=== PATIENT | male | born 2000 | race Caucasian/White ===

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

== ENCOUNTER 2021-01-18 19:18 | Observation (INO) | payer MEDICAID, SELFPAY ==
[2021-01-18 19:24] VITALS: BP 151/73; PULSE 114; RESP 16; TEMP 36.4; O2SAT 94; BMI 25.8
--- NOTE | 2021-01-18 19:47 | W.ED.OVERDOS ---
HPI - Overdose General: Chief Complaint: Overdose Stated Complaint: Overdose/SI Time Seen by Provider: 01/18/21 19:27 History of Present Illness: HPI Narrative: 20-year-old male presents after an overdose. I took a bunch of fentanyl, and an 8 ball of meth, and almost an 8 ball of cocaine, and 3 green Xanax, and I swallowed all of it . When asked why he says I let my depression get to me. My sister and her boyfriend were fighting all day about drugs. He is a bit of a poor historian. He does have a history of psychiatric problems. He states that he came here for help, because his heart was racing and hurting. 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 He denies suicidal or homicidal ideation, plan or intent. He is not depressed. Extensive education was undertaken regarding the severe risk of fentanyl. He understood and indicated he was going to avoid this friend who is giving him fentanyl. Physical Exam Const: EXAM LIMITATIONS: altered mental status and behavioral limitations GENERAL APPEARANCE: cooperative (To some degree) and anxious ORIENTATION/CONSCIOUSNESS: Yes awake, Yes oriented to person, Yes oriented to place and Yes oriented to time OTHER: Fidgeting, obviously intoxicated. HENMT: COMMON NORMALS: normocephalic, atraumatic and Normal external nose present HEAD & SCALP: normocephalic and atraumatic FACE & SINUS: normal facial exam NOSE: Normal external nose present MOUTH: tongue normal THROAT: posterior oropharynx normal Eye: COMMON NORMALS: Equal, round and reactive pupils present and EOMs intact bilaterally PUPIL: Yes Equal, round and reactive pupils present Chest: COMMONS NORMALS: normal inspection of the chest Resp: COMMON NORMALS: normal respiratory effort, No use of accessory muscles and clear to auscultation bilaterally AUSCULTATION: clear to auscultation bilaterally Cardio: COMMON NORMALS: regular rhythm RATE: tachycardic RHYTHM: regular rhythm GI: COMMON NORMALS: Soft to palpation and non-tender PALPATION: Yes Soft to palpation Neuro: SENSORIUM/ORIENTATION: Yes oriented to person, Yes oriented to place and Yes oriented to time Course Consultations: Consultation #1: Juanjo Time: 21:07 Vital Signs: Vital signs: Vital Signs Temperature 97.5 F L 01/18/21 19:24 Pulse Rate 114 H 01/18/21 19:24 Respiratory Rate 16 01/18/21 19:24 Blood Pressure 151/73 01/18/21 19:24 Pulse Oximetry 94 01/18/21 19:24 MDM - Overdose MDM Narrative: Medical decision making narrative: Mr. Mckinley remains medically stable. He is requiring no oxygen. He is awake, alert. He is still fidgety. I question whether there are any opiates on board at all. Clinically, he definitely appears to be intoxicated on methamphetamine. He maintains that he is suicidal and wants to voluntarily be admitted to the NPU. Lab Data: Labs: Lab Results 01/18/21 01/18/21 Range/Units 20:07 20:07 WBC 7.8 (4.5-13.0) 10^3/ uL RBC 5.16 (4.1-5.3) 10^6/u L Hgb 15.2 (11.7-16.6) g/dL Hct 46.6 (42.0-52.0) % MCV 90.3 (80-94) fL MCH 29.5 (28.0-34.0) pg MCHC 32.6 (30.0-36.0) g/dL RDW 13.4 (12.1-15.1) % Plt Count 368 (130-400) 10^3/c mm MPV 9.7 (7.4-10.4) fL Neut % (Auto) 59.3 % Lymph % (Auto) 27.3 % Imperial % (Auto) 10.6 % Eos % (Auto) 1.9 % Baso % (Auto) 0.6 % Neut # (Auto) 4.62 (1.8-8.0) 10^3/u L Lymph # (Auto) 2.1 (1.5-6.5) 10^3/u L Imperial # (Auto) 0.8 (0.2-0.9) 10^3/u L Eos # (Auto) 0.2 (0.0-0.8) 10^3/u L Baso # (Auto) 0.1 (0.0-0.1) 10^3/u L Nucleated RBC % (a uto) 0 % Nucleated RBCs # 0.0 /100WBC Sodium 138 (136-145) mmol/L Potassium 3.9 (3.5-5.1) mmol/L Chloride 99 (98-107) mmol/L Carbon Dioxide 27 (22-29) mmol/L Anion Gap 15.9 (5-19) BUN 14 (6-20) mg/dL Creatinine 0.8 (0.7-1.2) mg/dL GFR Calculation 124.5 (90-130) mL/min Glucose 97 (65-115) mg/dL Calculated Osmolal ity 286 (285-295) mOsm/k g Calcium 9.3 (8.5-10.5) mg/dL Total Bilirubin 0.9 (0.15-1.2) mg/dL AST 78 H (0-40) U/L ALT 136 H (0-41) U/L Alkaline Phosphata se 80 (40-130) IU/L Total Protein 8.3 (6.6-8.7) g/dL Albumin 5.2 (3.5-5.2) g/dL Globulin 3.1 (1.3-4.6) g/dL Salicylates < 0.3 L (3-10) mg/dL Acetaminophen < 5.0 L (10-30) ug/mL Ethyl Alcohol < 10 (0-10) mg/dL Discharge Plan Discharge Prescriptions: No Action Naprosyn 500 mg tablet 500 mg PO BID PRN (Reason: pain) Qty: 20 RF: 0 paroxetine HCl 20 mg Tablet 20 mg PO BEDTIME 30 Days Qty: 30 RF: 1 trazodone 50 mg Tablet 50 mg PO BEDTIME PRN (Reason: Sleep) 30 Days Qty: 30 RF: 1 olanzapine 5 mg Tablet 5 mg PO BEDTIME 30 Days Qty: 30 RF: 1 Coding Level of Care Code ED Aircraft Refueler for Taya Fwd Exam Detailed
[2021-01-18] MEDS: OLANZapine 10 mg ODT 20 MG PO (20:11)
[2021-01-18 20:44] LABS: Basophils # 0.1 10^3/uL (0.0-0.1); Basophils % 0.6 %; Eosinophils # 0.2 10^3/uL (0.0-0.8); Eosinophils % 1.9 %; Hematocrit 46.6 % (42.0-52.0); Hemoglobin 15.2 g/dL (11.7-16.6); Lymphocytes # 2.1 10^3/uL (1.5-6.5); Lymphocytes % 27.3 %; Mean Corpuscular HGB Conc 32.6 g/dL (30.0-36.0); Mean Corpuscular Hemoglobin 29.5 pg (28.0-34.0); Mean Corpuscular Volume 90.3 fL (80-94); Mean Platelet Volume 9.7 fL (7.4-10.4); Monocytes # 0.8 10^3/uL (0.2-0.9); Monocytes % 10.6 %; Neutrophils # 4.62 10^3/uL (1.8-8.0); Neutrophils % 59.3 %; Nucleated Red Blood Cells % 0 %; Platelet Count 368 10^3/cmm (130-400); Red Blood Count 5.16 10^6/uL (4.1-5.3); Red Cell Distribution Width 13.4 % (12.1-15.1); White Blood Count 7.8 10^3/uL (4.5-13.0)
[2021-01-18 21:01] LABS: Alanine Aminotransferase 136 U/L (0-41); Albumin Level 5.2 g/dL (3.5-5.2); Alkaline Phosphatase 80 IU/L (40-130); Aspartate Amino Transferase 78 U/L (0-40); Blood Urea Nitrogen 14 mg/dL (6-20); Calcium 9.3 mg/dL (8.5-10.5); Carbon Dioxide 27 mmol/L (22-29); Chloride 99 mmol/L (98-107); Globulin 3.1 g/dL (1.3-4.6); Glomerular Filtration Rate 124.5 mL/min (90-130); Glucose 97 mg/dL (65-115); Osmolality Calculated 286 mOsm/kg (285-295); Sodium 138 mmol/L (136-145); Total Bilirubin 0.9 mg/dL (0.15-1.2); Total Protein 8.3 g/dL (6.6-8.7)
[2021-01-18 21:02] LABS: Acetaminophen < 5.0 ug/mL (10-30); Alcohol Level < 10 mg/dL (0-10); Anion Gap 15.9 (5-19); Potassium 3.9 mmol/L (3.5-5.1); Salicylate < 0.3 mg/dL (3-10)
[2021-01-18 21:27] VITALS: BP 142/56; PULSE 125; RESP 20; TEMP 36.3; O2SAT 96
[2021-01-18 22:18] LABS: Add Urine Microscopic? NO; Charge for UA Resulting for Rev
[2021-01-18 22:21] LABS: Bilirubin Urine Neg (Negative); Blood Urine Neg (Negative); Glucose Urine UA Norm (Normal); Ketones Urine 1+ (Negative); Leukocyte Esterase Urine Negative (Negative); Nitrate Urine Negative (Negative); Protein Urine Neg (Negative); Specific Gravity, Urine 1.015 (1.005-1.030); Urine Appearance Clear (CLEAR); Urine Color Yellow (Yellow); Urobilinogen Urine Norm (Negative); pH Urine 5 (5-7)
--- NOTE | 2021-01-18 22:44 | PC.NURSE ---
Attempted to call report, RN accepting pt is not ready, asked for approx 10 minutes and will call back.
[2021-01-18 23:02] LABS: Amphetamines Screen Urine Positive (Negative); Barbiturates Screen Urine Negative (Negative); Benzodiazepines Screen Urine Negative (Negative); Cocaine Screen Urine Negative (Negative); Opiate Screen Urine Negative (Negative); PCP Screen Urine Negative (Negative); THC Screen Urine Positive (Negative)
[2021-01-18 23:41] VITALS: BP 146/86; PULSE 122; RESP 18; TEMP 36.7; O2SAT 96
--- NOTE | 2021-01-18 23:46 | PC.NURSE ---
faustino remains present, report given to Rony FELICIANO Pt now transported to GENERAL ACCOUNTING CLERK per w/c
[2021-01-19 00:03] VITALS: BP 127/78; PULSE 115; RESP 20; TEMP 36.9; O2SAT 96
[2021-01-19 00:13] VITALS: BMI 25.8
[2021-01-19] MEDS: trazodone 50 mg Tablet PO (01:18)
[2021-01-19 06:00] VITALS: BP 131/68; PULSE 107; RESP 16; TEMP 36.4; O2SAT 97
[2021-01-19] MEDS: fluoxetine 20 mg Capsule PO (09:08)
[2021-01-19] MEDS: haloperidol 5 mg Tablet PO (09:08)
[2021-01-19] MEDS: gabapentin 300 mg Capsule PO (09:08)
[2021-01-19] MEDS: citalopram 20 mg Tablet PO (09:08)
--- NOTE | 2021-01-19 09:10 | PC.NURSE ---
PRN Haldol Administered Haldol 5mg PO due to patient becoming agitated. Patient is requesting to leave and wanting to speak to the doctor right now. Patient has been pacing up and down the hallway. Nurse will continue to monitor.
--- NOTE | 2021-01-19 10:59 | P.SS_ITS ---
Short Stay Summary Providers Date of Admit/Discharge: 01/21/21 Attending Provider: Robert Geiger MD Primary Care Provider: Keaton Main Chief Complaint: wants stress unit/SI HPI History of Present Illness Vishal Mckinley is a 20 year old male who presented to the emergency department with the following report: Chief Complaint: Overdose Stated Complaint: Overdose/SI Time Seen by Provider: 01/18/21 19:27 History of Present Illness: HPI Narrative: 20-year-old male presents after an overdose. I took a bunch of fentanyl, and an 8 ball of meth, and almost an 8 ball of cocaine, and 3 green Xanax, and I swallowed all of it . When asked why he says I let my depression get to me. My sister and her boyfriend were fighting all day about drugs. He is a bit of a poor historian. He does have a history of psychiatric problems. He states that he came here for help, because his heart was racing and hurting. 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 He is admitted to the neuropsychiatric unit for definitive treatment of those issues. Vishal is known to this teletypewriter operator with his last inpatient stay ending on 08/18/2020. He has struggled with addiction especially methamphetamine for some time and has been resistant at times and ambivalent at others to treatment especially aggressive inpatient treatment. He presents today on a voluntary commitment reporting a desire to get into treatment and that he had reached out to a facility and was interested in the possibility of inpatient at that facility. He reports that he has had some clean time since he last saw this teletypewriter operator however he reports that he has relapsed and he is really struggling again. He was noted to have some tweaking behaviors and reports that his main goal of coming to the inpatient facility here was to avoid continued use and get himself together so he can get to the rehab. We discussed the possibility of him staying in getting more stable but he endorses that he has been taking his medication and doing fine and that he really wants to just get to active treatment. We discussed that he is a voluntary patient and that we would contact the facility and make sure that in fact he does have this circumstance set up however we also agreed that the only way we would feel comfortable with the process was if we deliver him directly from our facility to the rehab which he understood and agreed to proceed as is documented in this note. He denies any substantive changes since he was seen last in excess of his last evaluation is included below for context. He was clear and his desired outcome but was not very interested in answering a lot of questions and even discussed AMA discharge because he reports he gets by to drive home therefore he did not help. Per his 08/13/2020 [facility] [place] inpatient psychiatric valuation: History of Present Illness Vishal Mckinley is a 19 year old male admitted to the psychiatric unit on a 96- hour involuntary commitment after stating staff that he was considering ending h is own life. HPI Narrative: 19-year-old male states he has been having suicidal thoughts today with a plan to kill himself by overdosing. Patient is voluntarily wanting to get help. He states that he has been using drugs lately and used IV methamphetamine today. He denies any worsening or improving factors. Denies previous suicide attempts. On interview today, he states I just told him that because I knew I had to say that to get in here. Patient states he was under a lot of stress and did not know where to go. He was only discharged from this unit 7 days ago. Since then he has been sleeping in a bed at his cousin's apartment. He has been using a methamphetamine on a regular but not daily basis. He literally has nothing else to do. He has been trying to get into a rehabilitation program. He feels that a rehabilitation program will solve many of his psychosocial issues. He believes that if he completes a rehabilitation program, he will either be allowed to return to his mother's home or he will be able to go live with an uncle and get a job with him. Otherwise he has a really no plan of how to manage his life. He engages in no enjoyable activities. He feels hopeless. He feels worthless. He is tearful and sad on a daily basis except when he uses drugs. He says that he tried to commit suicide once by fentanyl overdose but has not tried since then. However he sometimes thinks about suicide. He has no intent or plan at this time. He denies the presence of auditory or visual hallucinations. There is no indication of manic symptoms or history. It is unclear to what degree his substance use may be amplifying his depressive symptoms. They gave me some kind of medication for depression here but it did not help so I stopped taking it. He cannot name or recall the name of the medication. His complete psychiatric history will not be reviewed here given that this is his fifth admission in 6 months, fourth admission in 9 weeks and second admission in 8 days. His history has been thoroughly reviewed and I refer you to those documents. It is unclear that he has ever had a significant trial of medication for depression. There is no record of him participating in outpatient treatment following discharge. He claims to have achieved a GED but given his a level of problem solving skills exhibited during this interview, it should not be assumed that that claim is accurate. There have been multiple recommendations for him to go to rehabilitation programs and he is in generally cooperative with the assessment/plan: This is a 20-year-old white male known to this teletypewriter operator through multiple past encounters who presents to the neuropsychiatric unit with active use and addiction specifically with methamphetamine but with a rehab bed identified on a voluntary commitment with desire for assistance to get to that rehab bed. 1. Continue current medication. 2. Continue every 15 minute checks for safety. 3. Encourage individual, group and milieu therapies. 4. Encourage sober living treatment after discharge at the highest level of care to which he is willing to commit. 5. Patient would benefit from care in the neuropsychiatric unit but ultimately the goal would be to get him to an inpatient bed which is available right now. He voluntary patient was arranged this inpatient bed and so we will support his decision. Home Meds/Allergies Home Medications and Allergies Allergies Allergy/AdvReac Type Severity Reaction Status Date / Time No Known Allergies Allergy Verified 08/12/20 21:43 PFSH Acute PFSH: Medical History (Updated 01/18/21 @ 21:29 by Francisco J Michaud DO) Fentanyl adverse reaction Patient denies any intent to poison himself. He denies suicidal or homicidal ideation, plan or intent. He is not depressed. Extensive education was undertaken regarding the severe risk of fentanyl. He understood and indicated he was going to avoid this friend who is giving him fentanyl. Vitals/I&O/Wt Last Vital Signs Temp 97.6 F 01/19/21 06:00 Pulse 107 H 01/19/21 06:00 Resp 16 01/19/21 06:00 BP 131/68 01/19/21 06:00 Pulse Ox 97 01/19/21 06:00 Weight last 48 hrs Weight 81.647 kg Weight 81.647 kg Hospital Course Admission Diagnoses Major depressive disorder, methamphetamine abuse, cannabis abuse, anxiety and suicidal thoughts. Hospital Course Heidy presented to the emergency department endorsing having taken an overdose as his addiction is once again got out of control and his impulse control has gotten more problematic. He was admitted to the neuropsychiatric unit for definitive treatment of those issues. He was a voluntary patient and when he got to the unit he requested to be assisted to get to a rehab bed he arranged or be discharged so that he could arrange for himself to get there. He denies any desire to or need to change his medications but just a need to get sober and de sire to consider doing that. We confirmed the current availability of the bed and discussed the risk benefits and alternatives of going there now versus staying a few days and then trying to get a bed and he understood. That his desire was to go to that bed now and there were no credible reasons for us to prevent him from this opportunity. He was able to contract for safety prior to discharge. During the hospitalization, patient had routine laboratory studies which were within normal limits except for few outliers. Additionally there was a general medical evaluation which was also within normal limits and revealed no new acute processes. Discharge Summary At the time of discharge, he denied psychosis or lethality. Mood and anxiety were well managed. Patient endorsed a plan to avoid all drugs of abuse and follow-up with the aftercare recommendations of the treatment team after rehab is complete. Patient was evaluated and deemed to be absent credible lethality, and had achieved the maximum benefit from an inpatient hospitalization, so was discharged. Diagnoses at Discharge Discharge Diagnosis (1) Drug overdose: Status: Acute Qualifiers: Encounter type: initial encounter Injury intent: intentional self-harm Qualified Code(s): T50.902A - Poisoning by unspecified drugs, medicaments and biological substances, intentional self-harm, initial encounter (2) Cannabis abuse: Status: Acute (3) Methamphetamine abuse: Status: Acute (4) Major depressive disorder: Status: Acute Qualifiers: Active/Remission status: currently active Major depression episode severity: moderate Major depression recurrence: single episode Qualified Code(s): F32.1 - Major depressive disorder, single episode, moderate Discharge Plan Discharge Patient Disposition: Home Condition: Stable Prescriptions: Continued naproxen [Naprosyn] 500 mg tablet 500 mg PO BID PRN (Reason: pain) Qty: 20 RF: 0 trazodone 50 mg Tablet 50 mg PO BEDTIME PRN (Reason: Sleep) 30 Days Qty: 30 RF: 1 Celexa 20 mg Tablet 20 mg PO DAILY 30 Days Qty: 30 RF: 1 gabapentin 300 mg Capsule 300 mg PO BID 30 Days Qty: 60 RF: 1 zaleplon 10 mg Capsule 10 mg PO BEDTIME 30 Days Qty: 30 RF: 0 Changed olanzapine 5 mg tablet 15 mg PO BEDTIME 30 Days Qty: 30 RF: 1 Discontinued fluoxetine [Prozac] 20 mg Capsule 20 mg PO DAILY RF: 0 Discharge Orders: Discharge Order (Routine); Ordered 01/19/21 Ordered By: Robert Geiger Referrals: [facility] [Other] (This is the facility you will be going to for treatment. ) Romulo Main MD [Primary Care Provider] - Discharge Diet: Regular Discharge Activity: Resume usual activity Patient Instructions: Opioid Safety Attestations Medical Necessity Statement*: Inpatient hospitalization is no longer medically necessary with a clinically appropriate event at this time. Patient is a voluntary patient without city grounds to hold him against his will with definitive treatment of rehab available now we will allow him to discharge to more specific treatment. Time Spent in Patient Care*: greater than 30 min Specific Discharge Activities: Specific discharge activities: educating patient, discussing with dependency case manager/social workers/dc planners, documenting/other paperwork and evaluating patient/reviewing data Quality Metrics Clinical Quality Measures: During this hospital stay, did patient experience: None Coding Level of Care Code Acute Film Sound Engineer for [facility] Fwd Diagnoses Drug overdose T50.080F Encounter type: initial encounter Injury intent: intentional self-harm Cannabis abuse F12.10 Methamphetamine abuse F15.10 Major depressive disorder F32.1 Active/Remission status: currently active Major depression episode severity: moderate Major depression recurrence: single episode
[2021-01-19 12:00] VITALS: BP 131/68; PULSE 107; RESP 16; TEMP 36.4; O2SAT 97
== END 2021-01-19 13:20 | disposition home or self-care (01) ==
LOC: ER 21:29 → NP 01-19 11:00
PROVIDERS: Admitting Provider Psychiatry & Neurology Psychiatry; Emergency Provider Emergency Medicine; PCP Family Medicine; Visit Provider Psychiatry & Neurology Psychiatry
DX: T50.902A Poisoning by unspecified drugs, medicaments and biological substances, intentional self-harm, initial encounter (principal); F12.10 Cannabis abuse, uncomplicated; F15.10 Other stimulant abuse, uncomplicated; F32.1 Major depressive disorder, single episode, moderate
CPT/HCPCS: 80053; 80306; 80307; 81003; 85025; 99285; G0378

== ENCOUNTER 2022-02-08 20:03 | Emergency (ER) | payer MEDICAID, SELFPAY ==
[2022-02-08 20:07] VITALS: BP 169/96; PULSE 95; RESP 18; TEMP 36.6; O2SAT 98; BMI 23.3
--- NOTE | 2022-02-08 20:15 | W.ED.NAVMDI ---
HPI - Nausea/Vomiting/Diarrhea General: Chief complaint: Nausea/Vomiting/Diarrhea Stated complaint: N/V/D states possible Covid + Time Seen by Provider: 02/08/22 20:12 History of Present Illness: 21-year-old male patient comes in today with complaints of nausea and vomiting last night with persistent vomiting today and diarrhea. Patient reports his son last week has similar illness. Patient also reports he was exposed to COVID-19. Patient appears mildly unwell but not toxic. Patient appears in no acute distress. Associated nausea: Yes Associated symtoms: Reports nausea; Denies chest pain Review of Systems Const: Denies: fever(s) Card: Denies: chest pain Resp: Denies: dyspnea GI: Reports: nausea, vomiting and diarrhea : Denies: difficulty urinating [facility] ED PFSH: Medical History (Updated 02/08/22 @ 20:34 by ZANA Marcus) Fentanyl adverse reaction Patient denies any intent to poison himself. He denies suicidal or homicidal ideation, plan or intent. He is not depressed. Extensive education was undertaken regarding the severe risk of fentanyl. He understood and indicated he was going to avoid this friend who is giving him fentanyl. Physical Exam Const: COMMON NORMALS: alert Neck/C-Spine: COMMON NORMALS: full ROM Resp: COMMON NORMALS: normal respiratory effort and clear to auscultation bilaterally AUSCULTATION: clear to auscultation bilaterally Cardio: COMMON NORMALS: regular rate RATE: regular rate GI: COMMON NORMALS: Soft to palpation and non-tender AUSCULTATION: Yes normoactive bowel sounds PALPATION: Yes Soft to palpation Extremity: COMMON NORMALS: normal to inspection Neuro: SENSORIUM/ORIENTATION: Yes alert Skin: COMMON NORMALS: no rashes or lesions noted GENERAL SKIN EXAM: no rashes or lesions noted Course Vital Signs: Vital signs: Vital Signs Temperature 98 F 02/08/22 20:07 Pulse Rate 95 02/08/22 20:07 Respiratory Rate 18 02/08/22 20:07 Blood Pressure 169/96 02/08/22 20:07 Pulse Oximetry 98 02/08/22 20:07 MDM - Nausea/Vomiting/Diarrhea Medical Decision Making And known [id number] male patient comes in today with complaints of nausea vomiting diarrhea starting last night. On exam abdomen soft marlene. Normoactive bowel sounds. Patient appears mildly unwell but not toxic. Vital signs are normal. Differential diagnosis includes viral syndrome, gastroenteritis, COVID-19. Patient was referred to her the emergency department from his workplace to be cleared of COVID-19. Patient seems to have gastroenteritis as he is feeling better with just a short bout of nausea vomiting diarrhea starting last night. We will go ahead and screen patient for COVID-19 PCR testing was sent to lab patient was recommended to recheck with the ER in 3 to 4 hours for final results. Patient was written for work note and for follow-up as needed. Patient stated understanding agreed to plan. Discharge Plan Discharge Patient Disposition: Home Clinical Impression: Gastroenteritis Condition: Stable Prescriptions: New ondansetron 4 mg tablet,disintegrating 4 mg PO Q8H PRN (Reason: nausea and vomiting) Qty: 7 0RF No Action naproxen [Naprosyn] 500 mg tablet 500 mg PO BID PRN (Reason: pain) Qty: 20 0RF trazodone 50 mg Tablet 50 mg PO BEDTIME PRN (Reason: Sleep) 30 Days Qty: 30 1RF Rx Instructions: PT STATES THAT HE HAS NOT TAKEN ANY OF HIS PRESCRIPTIONS IN A FEW WEEKS. olanzapine 5 mg tablet 15 mg PO BEDTIME 30 Days Qty: 30 1RF Celexa 20 mg Tablet 20 mg PO DAILY 30 Days Qty: 30 1RF gabapentin 300 mg Capsule 300 mg PO BID 30 Days Qty: 60 1RF zaleplon 10 mg Capsule 10 mg PO BEDTIME 30 Days Qty: 30 0RF Discharge Orders: Discharge ED (Routine); Ordered 02/08/22 Ordered By: Everton Batista Referrals: Romulo Main MD [Primary Care Provider] - Discharge Diet: Usual diet Discharge Activity: Increase activity as tolerated Patient Instructions: Gastroenteritis (ED) Activity Restrictions/Additional Instructions: Call back to the emergency department in 4 hours to get the results of your COVID-19 testing. Drink sips of fluid until you can tolerate increased oral rehydration and food. Use ondansetron tablets for nausea. Follow-up with primary care in 3 days for recheck. Return to ER for new concerns. 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
[2022-02-08 21:00] VITALS: BP 169/96; PULSE 86; RESP 16; O2SAT 96
[2022-02-08 22:33] LABS: Adenovirus Not Detected (NOT DETECT); Chlamydia Pneumoniae Not Detected (NOT DETECT); Coronavirus 229E,HKU1,NL63,OC4 Not Detected (NOT DETECT); Human Metapneumovirus Not Detected (NOT DETECT); Human Rhinovirus/Enterovirus Not Detected (NOT DETECT); Influenza A Not Detected (NOT DETECT); Influenza A H1 Not Detected (NOT DETECT); Influenza A H1-2009 Not Detected (NOT DETECT); Influenza A H3 Not Detected (NOT DETECT); Influenza B Not Detected (NOT DETECT); Mycoplasma Pneumoniae Not Detected (NOT DETECT); Parainfluenza Virus Type 1 Not Detected (NOT DETECT); Parainfluenza Virus Type 2 Not Detected (NOT DETECT); Parainfluenza Virus Type 3 Not Detected (NOT DETECT); Parainfluenza Virus Type 4 Not Detected (NOT DETECT); Respiratory Syncytial Virus A Not Detected (NOT DETECT); Respiratory Syncytial Virus B Not Detected (NOT DETECT); SARS-COV-2 Not Detected (NOT DETECT)
== END 2022-02-08 21:02 | disposition home or self-care (01) ==
PROVIDERS: Emergency Provider Nurse Practitioner Family; PCP Family Medicine
DX: K52.9 Noninfective gastroenteritis and colitis, unspecified (principal)
CPT/HCPCS: 87635; 99283

== ENCOUNTER 2023-06-30 19:48 | Inpatient (IN) | payer MEDICAID, SELFPAY ==
[2023-06-30 19:55] VITALS: BP 124/77; PULSE 76; RESP 18; TEMP 36.6; O2SAT 97; BMI 23.0
--- NOTE | 2023-06-30 21:27 | ED_ITS ---
HPI - Anxiety General: Chief Complaint: Anxiety Stated Complaint: anxiety Time Seen by Provider: 06/30/23 20:02 History of Present Illness: 22-year-old male with a history of mood disorder and drug abuse presents emergency room with for complaint of anxiety and depression for the past few days. Patient denies any suicidal homicidal ideation. No hallucination. Patient reviews that he last used meth amphetamine few days ago. Denies any shortness of breath, chest pain, fever or chills. Associated symptoms: Deny chills, fever(s) or headache(s) Review of Systems General: Reports: 10 or more systems reviewed and unremarkable except in HPI and below Const: Denies: fever(s), chills, body aches or change in appetite Neuro: Denies: headache(s), numbness in extremities, weakness in extremities or sensory changes Psych: Reports: anxiety, depression and hopelessness; Denies: panic attacks, sleeping less, loss of interest, paranoia, visual hallucinations, auditory hallucinations, tactile hallucinations, suicidal ideation or homicidal ideation [facility] ED PFSH: Medical History (Updated 06/30/23 @ 23:00 by Macie Bender MD) Fentanyl adverse reaction Patient denies any intent to poison himself. He denies suicidal or homicidal ideation, plan or intent. He is not depressed. Extensive education was undertaken regarding the severe risk of fentanyl. He understood and indicated he was going to avoid this friend who is giving him fentanyl. Physical Exam Const: COMMON NORMALS: patient oriented x3 GENERAL APPEARANCE: well kempt HENMT: COMMON NORMALS: normocephalic, atraumatic, hearing grossly normal bilaterally, external ears normal, EAC's normal, TM's normal bilaterally, Normal external nose present, Normal nasal mucous membranes and turbinates present, moist oral mucous membranes, oropharynx normal, dentition normal and gingiva normal HEAD & SCALP: normocephalic and atraumatic NOSE: Normal external nose present and Normal nasal mucous membranes and turbinates present EXTERNAL EAR: Yes external ears normal EXTERNAL AUDITORY CANAL: EAC's normal TYMPANIC MEMBRANE: TM's normal bilaterally Neck/C-Spine: COMMON NORMALS: no JVD Cardio: COMMON NORMALS: no JVD, regular rate, regular rhythm, S1 normal heart sound present, S2 normal heart sound present, No gallops present (Cardio), No clicks present (Cardio), No murmurs present (Cardio), No rub (Cardio) and Peripheral pulses 2+ throughout RATE: regular rate RHYTHM: regular rhythm HEART SOUNDS: S1 normal heart sound present and S2 normal heart sound present PERIPHERAL PULSES: Peripheral pulses 2+ throughout GI: COMMON NORMALS: Normal to inspection, nondistended, normoactive bowel sounds present, Soft to palpation, non-tender, No hepatosplenomegaly present, no masses and no bruits PALPATION: Yes Soft to palpation and Yes No hepatosplenomegaly present Extremity: COMMON NORMALS: normal to inspection, full ROM, capillary refill normal, no joint enlargement, no clubbing, cyanosis or edema, no calf tenderness and no pedal edema Neuro: COMMON NORMALS: patient oriented x3, CN's II-XII intact bilaterally, moves all extremities, no focal motor deficits, no sensory deficits noted, deep tendon reflexes 2+ bilaterally and gait normal Psych: COMMON NORMALS: Normal thought process present and speech normal APPEARANCE: Yes grossly normal and Yes well kempt ATTITUDE: Yes calm, No bizarre, No uncooperative, No Guarded attititude/behavior present, No Belliger ent attititude/behavior present, No agitated, No aggressive and No hostile ACTIVITY/MOTOR BEHAVIOR: Yes Avoids eye contact (attititude/behavior) SPEECH: Yes normal speech MOOD & AFFECT: Yes sad and Yes Flat affect present THOUGHT PROCESS: Normal thought process present THOUGHT CONTENT: No Hallucination(s) present, No Ideas of reference present (thought content), No Derealization present, No Depersonalization present, No rumination(s) and No Compulsions present (thought content) Course Consultations: Consultation #1: Discussed patient with Dr. Geiger. Patient will admit for further evaluation and treatment. Vital Signs: Vital signs: Vital Signs Temperature 97.5 F L 06/30/23 23:30 Pulse Rate 72 06/30/23 23:30 Respiratory Rate 16 07/01/23 06:00 Blood Pressure 107/63 06/30/23 23:30 Pulse Oximetry 97 06/30/23 23:30 Oxygen Delivery Me thod Room Air 06/30/23 23:57 MDM - Anxiety Medical Decision Making Patient may come to the emergency room. Discussed patient with the psychiatrist. Patient be admitted for further evaluation and treatment. Differential Diagnosis Likely hyperventilation, panic disorder and acute anxiety Lab Data 06/30/23 21:44 06/30/23 21:44 Laboratory Results WBC 6.34 10^3/uL (3.29-11.43) 06/30/23 21:44 RBC 4.98 10^6/uL (3.85-5.65) 06/30/23 21:44 Hgb 14.70 g/dL (11.27-16.99) 06/30/23 21:44 Hct 43.7 % (37-53) 06/30/23 21:44 MCV 87.8 fl (82-101) 06/30/23 21:44 MCH 29.5 pg (27-33) 06/30/23 21:44 MCHC 33.6 g/dL (30-55) 06/30/23 21:44 RDW 12.3 % (12.1-15.1) 06/30/23 21:44 Plt Count 319 10^3/cmm (157-399) 06/30/23 21:44 MPV 9.8 fL (7.4-10.4) 06/30/23 21:44 Neut % (Auto) 57.5 % 06/30/23 21:44 Lymph % (Auto) 28.5 % 06/30/23 21:44 [place] % (Auto) 9.6 % 06/30/23 21:44 Eos % (Auto) 3.6 % 06/30/23 21:44 Baso % (Auto) 0.6 % 06/30/23 21:44 Neut # (Auto) 3.64 10^3/uL (1.8-7.7) 06/30/23 21:44 Lymph # (Auto) 1.8 10^3/uL (0.8-4.8) 06/30/23 21:44 [place] # (Auto) 0.6 10^3/uL (0.2-0.9) 06/30/23 21:44 Eos # (Auto) 0.2 10^3/uL (0.0-0.8) 06/30/23 21:44 Baso # (Auto) 0.0 10^3/uL (0.0-0.1) 06/30/23 21:44 Nucleated RBC % (auto) 0 % 06/30/23 21:44 Nucleated RBCs # 0.0 /100WBC 06/30/23 21:44 Sodium 138 mmol/L (136-145) 06/30/23 21:44 Potassium 3.9 mmol/L (3.5-5.1) 06/30/23 21:44 Chloride 102 mmol/L (98-107) 06/30/23 21:44 Carbon Dioxide 26 mmol/L (22-29) 06/30/23 21:44 Anion Gap 13.9 (5-19) 06/30/23 21:44 BUN 12 mg/dL (6-20) 06/30/23 21:44 Creatinine 0.8 mg/dL (0.7-1.2) 06/30/23 21:44 GFR Calculation 122.0 mL/min (90-130) 06/30/23 21:44 Glucose 100 mg/dL (65-115) 06/30/23 21:44 Calculated Osmolality 286 mOsm/kg (285-295) 06/30/23 21:44 Calcium 9.1 mg/dL (8.5-10.5) 06/30/23 21:44 Total Bilirubin 0.5 mg/dL (0.15-1.2) 06/30/23 21:44 AST 35 U/L (0-40) 06/30/23 21:44 ALT 65 U/L (0-41) H 06/30/23 21:44 Alkaline Phosphatase 70 U/L (40-130) 06/30/23 21:44 Total Protein 7.5 g/dL (6.6-8.7) 06/30/23 21:44 Albumin 4.5 g/dL (3.5-5.2) 06/30/23 21:44 Globulin 3.0 g/dL (1.3-4.6) 06/30/23 21:44 Salicylates 0.4 mg/dL (3-10) L 06/30/23 21:44 Acetaminophen < 5.0 ug/mL (10-30) L 06/30/23 21:44 Ethyl Alcohol < 10 mg/dL (0-10) 06/30/23 21:44 No radiology studies performed this visit Discharge Plan Discharge Patient Disposition: Admitted As Inpatient Admit Provider: Robert Geiger Clinical Impression: Major depressive disorder, Methamphetamine abuse Condition: Stable Coding Level of Care Code ED Database Management Specialist for Taya Major
[2023-06-30 21:51] LABS: Basophils % 0.6 %; Eosinophils # 0.2 10^3/uL (0.0-0.8); Eosinophils % 3.6 %; Hematocrit 43.7 % (37-53); Lymphocytes # 1.8 10^3/uL (0.8-4.8); Lymphocytes % 28.5 %; Mean Corpuscular HGB Conc 33.6 g/dL (30-55); Mean Corpuscular Hemoglobin 29.5 pg (27-33); Mean Corpuscular Volume 87.8 fl (82-101); Mean Platelet Volume 9.8 fL (7.4-10.4); Monocytes # 0.6 10^3/uL (0.2-0.9); Monocytes % 9.6 %; Neutrophils # 3.64 10^3/uL (1.8-7.7); Neutrophils % 57.5 %; Nucleated Red Blood Cells % 0 %; Platelet Count 319 10^3/cmm (157-399); Red Blood Count 4.98 10^6/uL (3.85-5.65); Red Cell Distribution Width 12.3 % (12.1-15.1); White Blood Count 6.34 10^3/uL (3.29-11.43)
[2023-06-30 21:59] VITALS: BP 142/51; PULSE 72; RESP 16; O2SAT 95
[2023-06-30 22:11] LABS: Alanine Aminotransferase 65 U/L (0-41); Albumin Level 4.5 g/dL (3.5-5.2); Alkaline Phosphatase 70 U/L (40-130); Anion Gap 13.9 (5-19); Aspartate Amino Transferase 35 U/L (0-40); Blood Urea Nitrogen 12 mg/dL (6-20); Calcium 9.1 mg/dL (8.5-10.5); Carbon Dioxide 26 mmol/L (22-29); Chloride 102 mmol/L (98-107); Glucose 100 mg/dL (65-115); Osmolality Calculated 286 mOsm/kg (285-295); Potassium 3.9 mmol/L (3.5-5.1); Salicylate 0.4 mg/dL (3-10); Sodium 138 mmol/L (136-145); Total Bilirubin 0.5 mg/dL (0.15-1.2); Total Protein 7.5 g/dL (6.6-8.7)
[2023-06-30 22:28] LABS: Acetaminophen < 5.0 ug/mL (10-30); Alcohol Level < 10 mg/dL (0-10)
[2023-06-30 23:30] VITALS: BP 107/63; PULSE 72; RESP 18; TEMP 36.4; O2SAT 97
--- NOTE | 2023-06-30 23:55 | PC.NURSE ---
Pt arrived from ER with security and RN at side. Pt is somnolent w/difficulty answering questions. Denies drug and alcohol use, however dx in chart reflect other arshad. When assessment completed it was difficult to keep pt on task and awake, also evasive with answers. Pt changed out and shown to room. Behavior monitoring continues.
[2023-07-01 06:00] VITALS: RESP 16
--- NOTE | 2023-07-01 06:36 | PC.NURSE ---
Pt irritated this am, banging stuff around in room and slamming the bathroom door. Pt states that that cecilia snores like a fucking fre[employer]ect train and I haven't slept . Pt has been noted to be sleeping the majority of them time since arrival to the unit. One on one care and redirection provided, pt con't to complain. Will look for new room assignment.
[2023-07-01] MEDS: OLANZapine 5 mg ODT PO ×2 (08:01→18:05)
--- NOTE | 2023-07-01 08:07 | PC.NURSE ---
During morning assessment, patient denies SI, HI, AVH. Patiet states that his anxiety fluctuates depending on his thoughts. When he thinks about his activities on the outside he becomes anxious.
[2023-07-01 14:00] VITALS: BP 100/47; PULSE 52; RESP 16; TEMP 36.8; O2SAT 96
--- NOTE | 2023-07-01 14:02 | P.NPUHP_ITS ---
Providers/Chief Complaint Admitting Physician: Robert Geiger MD Primary Care Provider: Keaton Main Chief Complaint: anxiety HPI NPU History of Present Illness Vishal Mckinley is a 22 year old male who presented to the emergency department with the following report: Chief Complaint: Anxiety Stated Complaint: anxiety Time Seen by Provider: 06/30/23 20:02 History of Present Illness: 22-year-old male with a history of mood disorder and drug abuse presents emergency room with for complaint of anxiety and depression for the past few days. Patient denies any suicidal homicidal ideation. No hallucination. Patient reviews that he last used meth amphetamine few days ago. Denies any shortness of breath, chest pain, fever or chills. Associated symptoms: Deny chills, fever(s) or headache(s). He was admitted to the neuropsychiatric unit for definitive treatment of those issues. He presents today reporting that he does not remember this display card writer from previous hospitalizations. He reports that he had been doing well overall and had about a year of sobriety. He reports that there was some acquaintances/friends that he recently was interacting with that got him off track and he does report that he relapsed and that has caused significant difficulties. He denies being on any medication and reports that in general things are okay. We reviewed his 2020 short stay summary as he was struggling with withdrawal and not the best historian. He endorsed that it was an accurate depiction of his general history. He reports however that recently he has been staying sober by working and staying really busy and not hanging around people from the past. He is not really clear what the trigger was that got him off his positive run. But he said that things had really gotten bad which led to him coming to the hospital. He reports that it was methamphetamine again. He endorsed wanting to work with the treatment team to get connected with sober living treatment. He was somewhat unsure whether he wanted inpatient or outpati ent but endorsed knowing he needs to get back on a recovery process. We agree we will work with him over the weekend and see how he is doing at the beginning of the week. An excerpt of his 2020 [facility] inpatient short stay summary is included below for context. Per his 01/19/2021 [facility] inpatient short stay summary: History of Present Illness Vishal Mckinley is a 20 year old male who presented to the emergency department with the following report: Chief Complaint: Overdose Stated Complaint: Overdose/SI Time Seen by Provider: 01/18/21 19:27 History of Present Illness: HPI Narrative: 20-year-old male presents after an overdose. I took a bunch of fentanyl, and an 8 ball of meth, and almost an 8 ball of cocaine, and 3 green Xanax, and I swallowed all of it . When asked why he says I let my depression get to me. My sister and her boyfriend were fighting all day about drugs. He is a bit of a poor historian. He does have a history of psychiatric problems. He states that he came here for help, because his heart was racing and hurting. 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 He is admitted to the neuropsychiatric unit for definitive treatment of those issues. Vishal is known to this display card writer with his last inpatient stay ending on 08/18/2020. He has struggled with addiction especially methamphetamine for some time and has been resistant at times and ambivalent at others to treatment especially aggressive inpatient treatment. He presents today on a voluntary commitment reporting a desire to get into treatment and that he had reached out to a facility and was interested in the possibility of inpatient at that facility. He reports that he has had some clean time since he last saw this display card writer however he reports that he has relapsed and he is really struggling again. He was noted to have some tweaking behaviors and reports that his main goal of coming to the inpatient facility here was to avoid continued use and get himself together so he can get to the rehab. We discussed the possibility of him staying in getting more stable but he endorses that he has been taking his medication and doing fine and that he really wants to just get to active treatment. We discussed that he is a voluntary patient and that we would contact the facility and make sure that in fact he does have this circumstance set up however we also agreed that the only way we would feel comfortable with the process was if we deliver him directly from our facility to the rehab which he understood and agreed to proceed as is documented in this note. He denies any substantive changes since he was seen last in excess of his last evaluation is included below for context. He was clear and his desired outcome but was not very interested in answering a lot of questions and even discussed AMA discharge because he reports he gets by to drive home therefore he did not help. Per his 08/13/2020 [facility] inpatient psychiatric valuation: History of Present Illness Vishal Mckinley is a 19 year old male admitted to the psychiatric unit on a 96- hour involuntary commitment after stating staff that he was considering ending his own life. HPI Narrative: 19-year-old male states he has been having suicidal thoughts today with a plan to kill himself by overdosing. Patient is voluntarily wanting to get help. He states that he has been using drugs lately and used IV methamphetamine today. He denies any worsening or improving factors. Denies previous suicide attempts. On interview today, he states I just told him that because I knew I had to say that to get in here. Patient states he was under a lot of stress and did not know where to go. He was only discharged from this unit 7 days ago. Since then he has been sleeping in a bed at his cousin's apartment. He has been using a methamphetamine on a regular but not daily basis. He literally has nothing else to do. He has been trying to get into a rehabilitation program. He feels that a rehabilitation program will solve many of his psychosocial issues. He believes that if he completes a rehabilitation program, he will either be allowed to return to his mother's home or he will be able to go live with an uncle and get a job with him. Otherwise he has a really no plan of how to manage his life. He engages in no enjoyable activities. He feels hopeless. He feels worthless. He is tearful and sad on a daily basis except when he uses d rugs. He says that he tried to commit suicide once by fentanyl overdose but has not tried since then. However he sometimes thinks about suicide. He has no intent or plan at this time. He denies the presence of auditory or visual hallucinations. There is no indication of manic symptoms or history. It is unclear to what degree his substance use may be amplifying his depressive symptoms. They gave me some kind of medication for depression here but it did not help so I stopped taking it. He cannot name or recall the name of the medication. His complete psychiatric history will not be reviewed here given that this is his fifth admission in 6 months, fourth admission in 9 weeks and second admission in 8 days. His history has been thoroughly reviewed and I refer you to those documents. It is unclear that he has ever had a significant trial of medication for depression. There is no record of him participating in outpatient treatment following discharge. He claims to have achieved a GED but given his a level of problem solving skills exhibited during this interview, it should not be assumed that that claim is accurate. There have been multiple recommendations for him to go to rehabilitation programs and he is in generally cooperative with the assessment/plan: This is a 20-year-old white male known to this display card writer through multiple past encounters who presents to the neuropsychiatric unit with active use and addiction specifically with methamphetamine but with a rehab bed identified on a voluntary commitment with desire for assistance to get to that rehab bed. 1. Continue current medication. 2. Continue every 15 minute checks for safety. 3. Encourage individual, group and milieu therapies. 4. Encourage sober living treatment after discharge at the highest level of care to which he is willing to commit. 5. Patient would benefit from care in the neuropsychiatric unit but ultimately the goal would be to get him to an inpatient bed which is available right now. He voluntary patient was arranged this inpatient bed and so we will support his decision. Hospital Course Admission Diagnoses Major depressive disorder, methamphetamine abuse, cannabis abuse, anxiety and suicidal thoughts. Hospital Course Crystal presented to the emergency department endorsing having taken an overdose as his addiction is once again got out of control and his impulse control has gotten more problematic. He was admitted to the neuropsychiatric unit for definitive treatment of those issues. He was a voluntary patient and when he got to the unit he requested to be assisted to get to a rehab bed he arranged or be discharged so that he could arrange for himself to get there. He denies any desire to or need to change his medications but just a need to get sober and desire to consider doing that. We confirmed the current availability of the bed and discussed the risk benefits and alternatives of going there now versus staying a few days and then trying to get a bed and he understood. That his desire was to go to that bed now and there were no credible reasons for us to prevent him from this opportunity. He was able to contract for safety prior to discharge. During the hospitalization, patient had routine laboratory studies which were within normal limits except for few outliers. Additionally there was a general medical evaluation which was also within normal limits and revealed no new acute processes. Discharge Summary At the time of discharge, he denied psychosis or lethality. Mood and anxiety were well managed. Patient endorsed a plan to avoid all drugs of abuse and follow-up with the aftercare recommendations of the treatment team after rehab is complete. Patient was evaluated and deemed to be absent credible lethality, and had achieved the maximum benefit from an inpatient hospitalization, so was discharged. Meds NPU Home Medications Medication Instructions Recorded Confirmed Last Taken Type No Known Home Medications 07/01/23 07/01/23 Unknown History Allergies Allergy/AdvReac Type Severity Reaction Status Date / Time No Known Allergies Allergy Verified 06/30/23 19:59 PFSH NPU PFS: Medical History (Updated 07/01/23 @ 16:19 by Robert Geiger MD) Fentanyl adverse reaction Patient denies any intent to poison himself. He denies suicidal or homicidal ideation, plan or intent. He is not depressed. Extensive education was undertaken regarding the severe risk of fentanyl. He understood and indicated he was going to avoid this friend who is giving him fentanyl. Mental Status Exam MSE Comments: This is a well-nourished well-developed white adolescent male in hospital scrubs with adequate grooming and eye contact. No abnormal movements except for psychomotor agitation. Mostly cooperative with exam in mild to moderate distress. Speech was increased rate and normal volume. Mood anxious, affect irritable. Thought process organized. Thought content: Patient denied any suicidal or homicidal ideation, there are no delusions reported or noted, he denied any auditory or visual hallucinations. Attention, concentration and memory were intact, but none were formally tested. He is alert and oriented x3. Insight and judgment are limited and impulse control is impaired. Vitals/I&O/Wt Last Vital Signs Temp 97.5 F L 06/30/23 23:30 Pulse 72 06/30/23 23:30 Resp 16 07/01/23 06:00 BP 107/63 06/30/23 23:30 Pulse Ox 97 06/30/23 23:30 O2 Del Method Room Air 06/30/23 23:57 Weight last 48 hrs Weight 74.843 kg Data NPU 06/30/23 21:44 06/30/23 21:44 A&P Assessment and plan (1) Major depressive disorder: (2) Opioid use: (3) Cannabis abuse: (4) Methamphetamine use disorder, severe: Plan This is a 22-year-old white male with a long history of addiction with significant methamphetamine use disorder history with occasional psychosis with use who presents after recent relapse with suicidal thoughts, anxiety and active use. 1. Continue off of medication but consider medications for anxiety and to help with withdrawal. 2. Continue every 15 minute checks for safety. 3. Encourage individual, group and milieu therapy. 4. Encourage sober living treatment after discharge at the highest level of care to which she is willing to commit. Involuntary Hold Information 96 Hour Hold: 96 Hour Involuntary Admission: No Attestations NPU Medical Necessity Statement*: Inpatient hospitalization is medically necessary and the clinically appropriate intervention at this time. We will initiate and monitor and make changes to medications as indicated. He will be hospital for over 2 midnights. Likely length of stay 3-5 days. Coding Level of Care Code Acute Code for [facility] Diagnoses Major depressive disorder F32.9 Opioid use F11.90 Cannabis abuse F12.10 Methamphetamine use disorder, severe F15.20
--- NOTE | 2023-07-01 18:05 | PC.NURSE ---
Administered zyprexa 5mg ODT to patient for anxiety 03/28
[2023-07-01 20:48] VITALS: BP 102/55; PULSE 59; RESP 16; TEMP 36.6; O2SAT 97
[2023-07-02 06:00] VITALS: BP 118/63; PULSE 39; RESP 14; O2SAT 97
--- NOTE | 2023-07-02 08:26 | P.NPUPN_ITS ---
Subjective NPU Subjective: Patient presented today reporting that he is doing a little better. He requested that we restart the medications he was on a year ago when he came. We discussed the risks benefits and alternatives of starting those medications at appropriate doses given he has not been on anything for a while. He also expressed some concern about a job he supposed to be starting on Tuesday that he has been working hard to get. We discussed the possibility of discussing an earlier discharge if we can confirm that job option and get him restarted on his medications. Mental Status Exam MSE Comments: This is a well-nourished well-developed white adolescent male in hospital scrubs with adequate grooming and eye contact. No abnormal movements except for psychomotor agitation. Mostly cooperative with exam in mild to moderate distress. Speech was increased rate and normal volume. Mood anxious, affect irritable. Thought process organized. Thought content: Patient denied any suicidal or homicidal ideation, there are no delusions reported or noted, he denied any auditory or visual hallucinations. Attention, concentration and memory were intact, but none were formally tested. He is alert and oriented x3. Insight and judgment are limited and impulse control is impaired. Vitals/I&O/Wt Last Vital Signs Temp 97.9 F 07/01/23 20:48 Pulse 39 L 07/02/23 06:00 Resp 14 07/02/23 06:00 BP 118/63 07/02/23 06:00 Pulse Ox 97 07/02/23 06:00 O2 Del Method Room Air 07/02/23 06:00 Weight last 48 hrs Weight 74.843 kg Data NPU 06/30/23 21:44 06/30/23 21:44 A&P Assessment and plan (1) Major depressive disorder: (2) Opioid use: (3) Cannabis abuse: (4) Methamphetamine use disorder, severe: Plan This is a 22-year-old white male with a long history of addiction with significant methamphetamine use disorder history with occasional psychosis with use who presents after recent relapse with suicidal thoughts, anxiety and active use. 1. Restart medications with Zyprexa 10 mg p.o. nightly, Neurontin 100 mg p.o. twice daily, and either Prozac or Celexa 20 mg daily based on which 1 he prefers. 2. Continue every 15 minute checks for safety. 3. Encourage individual, group and milieu therapy. 4. Encourage sober living treatment after discharge at the highest level of care to which she is willing to commit. Involuntary Hold Information 96 Hour Hold: 96 Hour Involuntary Admission: No Attestations NPU Medical Necessity Statement*: Inpatient hospitalization is medically necessary and the clinically appropriate intervention at this time. We will initiate and monitor and make changes to medications as indicated. Likely length of stay 1-3 days. Coding Level of Care Code Acute Code for [facility] Fwd Diagnoses Major depressive disorder F32.9 Opioid use F11.90 Cannabis abuse F12.10 Methamphetamine use disorder, severe F15.20
[2023-07-02 14:00] VITALS: BP 111/70; PULSE 96; RESP 16; TEMP 536.6; TEMP 997.8; O2SAT 98
[2023-07-02] MEDS: hyDROXYzine 25 mg Capsule 50 MG PO (14:39)
[2023-07-02] MEDS: citalopram 20 mg Tablet PO (15:30)
[2023-07-02 19:53] VITALS: BP 134/64; PULSE 63; RESP 16; TEMP 36.4; O2SAT 98
[2023-07-02] MEDS: gabapentin 100 mg Capsule PO (20:36)
[2023-07-02] MEDS: OLANZapine 10 mg TABLET PO (20:36)
[2023-07-03] MEDS: OLANZapine 5 mg ODT PO (03:01)
[2023-07-03 06:00] VITALS: BP 110/64; PULSE 71; RESP 16; TEMP 36.6; O2SAT 99
[2023-07-03] MEDS: citalopram 20 mg Tablet PO (09:01)
[2023-07-03] MEDS: gabapentin 100 mg Capsule PO (09:01)
[2023-07-03 14:00] VITALS: BP 132/77; PULSE 92; RESP 16; TEMP 36.6; O2SAT 94
--- NOTE | 2023-07-03 15:02 | W.PM.NPUDCS ---
Diagnoses at Discharge Discharge Diagnosis (1) Major depressive disorder: Status: Acute (2) Opioid use: Status: Acute (3) Cannabis abuse: Status: Acute (4) Methamphetamine use disorder, severe: Status: Acute Reason for Visit Reason for Visit: anxiety Brief History: History of Present Illness Vishal Mckinley is a 22 year old male who presented to the emergency department with the following report: Chief Complaint: Anxiety Stated Complaint: anxiety Time Seen by Provider: 06/30/23 20:02 History of Present Illness: ? 22-year-old male with a history of mood disorder and drug abuse presents emergency room with for complaint of anxiety and depression for the past few days.? Patient denies any suicidal homicidal ideation.? No hallucination.? Patient reviews that he last used meth amphetamine few days ago.? Denies any shortness of breath, chest pain, fever or chills. ? Associated symptoms: Deny chills, fever(s) or headache(s). He was admitted to the neuropsychiatric unit for definitive treatment of those issues.? He presents today reporting that he does not remember this adjusto writer operator from previous hospitalizations.? He reports that he had been doing well overall and had about a year of sobriety.? He reports that there was some acquaintances/friends that he recently was interacting with that got him off track and he does report that he relapsed and that has caused significant difficulties.? He denies being on any medication and reports that in general things are okay.? We reviewed his 2020 short stay summary as he was struggling with withdrawal and not the best historian.? He endorsed that it was an accurate depiction of his general history.? He reports however that recently he has been staying sober by working and staying really busy and not hanging around people from the past.? He is not really clear what the trigger was that got him off his positive run.? But he said that things had really gotten bad which led to him coming to the hospital.? He reports that it was methamphetamine again.? He endorsed wanting to work with the treatment team to get connected with sober living treatment.? He was somewhat unsure whether he wanted inpatient or outpatient but endorsed knowing he needs to get back on a recovery process.? We agree we will work with him over the weekend and see how he is doing at the beginning of the week.? An excerpt of his [address] [facility] inpatient short stay summary is included below for context. Per his 01/19/[address] [facility] inpatient short stay summary: History of Present Illness Vishal Mckinley is a 20 year old male who presented to the emergency department with the following report: Chief Complaint: Overdose Stated Complaint: Overdose/SI Time Seen by Provider: 01/18/21 19:27 History of Present Illness: ? HPI Narrative: 20-year-old male presents after an overdose.? I took a bunch of fentanyl, and an 8 ball of meth, and almost an 8 ball of cocaine, and 3 green Xanax, and I swallowed all of it .? When asked why he says I let my depression get to me.? My sister and her boyfriend were fighting all day about drugs. ? He is a bit of a poor historian.? He does have a history of psychiatric problems.? He states that he came here for help, because his heart was racing and hurting.? 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 He is admitted to the neuropsychiatric unit for definitive treatment of those issues.? Vishal is known to this adjusto writer operator with his last inpatient stay ending on 08/18/2020.? He has struggled with addiction especially methamphetamine for some time and has been resistant at times and ambivalent at others to treatment especially aggressive inpatient treatment.? He presents today on a voluntary commitment reporting a desire to get into treatment and that he had reached out to a facility and was interested in the possibility of inpatient at that facility.? He reports that he has had some clean time since he last saw this adjusto writer operator however he reports that he has relapsed and he is really struggling again.? He was noted to have some tweaking behaviors and reports that his main goal of coming to the inpatient facility here was to avoid continued use and get himself together so he can get to the rehab.? We discussed the possibility of him staying in getting more stable but he endorses that he has been taking his medication and doing fine and that he really wants to just get to active treatment.? We discussed that he is a voluntary patient and that we would contact the facility and make sure that in fact he does have this circumstance set up however we also agreed that the only way we would feel comfortable with the process was if we deliver him directly from our facility to the rehab which he understood and agreed to proceed as is documented in this note.? He denies any substantive changes since he was seen last in excess of his last evaluation is included below for context.? He was clear and his desired outcome but was not very interested in answering a lot of questions and even discussed AMA discharge because he reports he gets by to drive home therefore he did not help. Per his 08/13/[address] [facility] inpatient psychiatric valuation: History of Present Illness Vishal Mckinley is a 19 year old male admitted to the psychiatric unit on a 96-hour involuntary commitment after stating staff that he was considering ending his own life. HPI Narrative: 19-year-old male states he has been having suicidal thoughts today with a plan to kill himself by overdosing.? Patient is voluntarily wanting to get help.? He states that he has been using drugs lately and used IV methamphetamine today.? He denies any worsening or improving factors.? Denies previous suicide attempts. On interview today, he states I just told him that because I knew I had to say that to get in here. ? Patient states he was under a lot of stress and did not know where to go.? He was only discharged from this unit 7 days ago.? Since then he has been sleeping in a bed at his cousin's apartment.? He has been using a methamphetamine on a regular but not daily basis.? He literally has nothing else to do.? He has been trying to get into a rehabilitation program.? He feels that a rehabilitation program will solve many of his psychosocial issues.? He believes that if he completes a rehabilitation program, he will either be allowed to return to his mother's home or he will be able to go live with an uncle and get a job with him.? Otherwise he has a really no plan of how to manage his life.? He engages in no enjoyable activities.? He feels hopeless.? He feels worthless.? He is tearful and sad on a daily basis except when he uses drugs.? He says that he tried to commit suicide once by fentanyl overdose but has not tried since then.? However he sometimes thinks about suicide.? He has no intent or plan at this time.? He denies the presence of auditory or visual hallucinations.? There is no indication of manic symptoms or history.? It is unclear to what degree his substance use may be amplifying his depressive symptoms.? They gave me some kind of medication for depression here but it did not help so I stopped taking it. ? He cannot name or recall the name of the medication. His complete psychiatric history will not be reviewed here given that this is his fifth admission in 6 months, fourth admission in 9 weeks and second admission in 8 days.? His history has been thoroughly reviewed and I refer you to those documents.? It is unclear that he has ever had a significant trial of medication for depression.? There is no record of him participating in outpatient treatment following discharge.? He claims to have achieved a GED but given his a level of problem solving skills exhibited during this interview, it should not be assumed that that claim is accurate.? There have been multiple recommendations for him to go to rehabilitation programs and he is in generally cooperative with the assessment/plan: This is a 20-year-old white male known to this adjusto writer operator through multiple past encounters who presents to the neuropsychiatric unit with active use and addiction specifically with methamphetamine but with a rehab bed identified on a voluntary commitment with desire for assistance to get to that rehab bed. 1.? Continue current medication. 2.? Continue every 15 minute checks for safety. 3.? Encourage individual, group and milieu therapies. 4.? Encourage sober living treatment after discharge at the highest level of care to which he is willing to commit. 5.? Patient would benefit from care in the neuropsychiatric unit but ultimately the goal would be to get him to an inpatient bed which is available right now.? He voluntary patient was arranged this inpatient bed and so we will support his decision. Hospital Course Hospital Course He acclimated to the individual, group and milieu therapies provided.? He was most recently discharged 01/19/2021 and reported that he had done well in his recovery in general. He presented having relapsed and wanting to get restarted on his medication. It became clear that a part of his reason for coming was that he had a job he has been trying to get for a couple of months that he was supposed to start and he wanted to be in a better state of mind and have a better chance of keeping the job so he came to the hospital. We restarted his medications at appropriate doses such that he was on Zyprexa 10 mg p.o. nightly, Neurontin 300 mg p.o. twice daily and Celexa 20 mg p.o. daily at discharge. He worked with the social work team for appropriate discharge appointments and endorsed a plan to follow-up with his outpatient care and take his medications to ensure his success in sobriety. He had modest improvement during the stay and he was able to contract for safety outside the hospital prior to discharge.? During the hospitalization, patient had routine laboratory studies which were within normal limits except for few outliers.? Additionally there was a general medical evaluation which was also within normal limits and revealed no new acute processes. Discharge Summary: At the time of discharge, he denied psychosis or lethality.? Mood and anxiety were well managed.? Patient endorsed a plan to avoid all drugs of abuse and follow-up with the aftercare recommendations of the treatment team.? Patient was evaluated and deemed to be absent credible lethality, and had achieved significant benefit from an inpatient hospitalization, but was voluntary with no issues to place on hold noted, so was discharged. Involuntary Hold Information 96 Hour Hold: 96 Hour Involuntary Admission: No Mental Status Exam MSE Comments: This is a well-nourished well-developed white adolescent male in hospital scrubs with adequate grooming and eye contact. No abnormal movements except for psychomotor agitation. Mostly cooperative with exam in mild to moderate distress. Speech was increased rate and normal volume. Mood anxious, affect irritable. Thought process organized. Thought content: Patient denied any suicidal or homicidal ideation, there are no delusions reported or noted, he denied any auditory or visual hallucinations. Attention, concentration and memory were intact, but none were formally tested. He is alert and oriented x3. Insight and judgment are limited and impulse control is impaired. Discharge Data Studies Completed and Pending: Pending at discharge Category Date Time Status Drug Screen, Urin e Stat Lab 06/30/23 21:27 Uncollected Laboratory Results WBC 6.34 10^3/uL (3.2 9-11.43) 06/30/23 21:44 RBC 4.98 10^6/uL (3.8 5-5.65) 06/30/23 21:44 Hgb 14.70 g/dL (11.27 -16.99) 06/30/23 21:44 Hct 43.7 % (37-53) 06/30/23 21:44 MCV 87.8 fl (82-101) 06/30/23 21:44 MCH 29.5 pg (27-33) 06/30/23 21:44 MCHC 33.6 g/dL (30-55) 06/30/23 21:44 RDW 12.3 % (12.1-15.1 ) 06/30/23 21:44 Plt Count 319 10^3/cmm (157 -399) 06/30/23 21:44 MPV 9.8 fL (7.4-10.4) 06/30/23 21:44 Neut % (Auto) 57.5 % 06/30/23 21:44 Lymph % (Auto) 28.5 % 06/30/23 21:44 [place] % (Auto) 9.6 % 06/30/23 21:44 Eos % (Auto) 3.6 % 06/30/23 21:44 Baso % (Auto) 0.6 % 06/30/23 21:44 Neut # (Auto) 3.64 10^3/uL (1.8 -7.7) 06/30/23 21:44 Lymph # (Auto) 1.8 10^3/uL (0.8- 4.8) 06/30/23 21:44 [place] # (Auto) 0.6 10^3/uL (0.2- 0.9) 06/30/23 21:44 Eos # (Auto) 0.2 10^3/uL (0.0- 0.8) 06/30/23 21:44 Baso # (Auto) 0.0 10^3/uL (0.0- 0.1) 06/30/23 21:44 Nucleated RBC % (a uto) 0 % 06/30/23 21:44 Nucleated RBCs # 0.0 /100WBC 06/30/23 21:44 Sodium 138 mmol/L (136-1 45) 06/30/23 21:44 Potassium 3.9 mmol/L (3.5-5 .1) 06/30/23 21:44 Chloride 102 mmol/L (98-10 7) 06/30/23 21:44 Carbon Dioxide 26 mmol/L (22-29) 06/30/23 21:44 Anion Gap 13.9 (5-19) 06/30/23 21:44 BUN 12 mg/dL (6-20) 06/30/23 21:44 Creatinine 0.8 mg/dL (0.7-1. 2) 06/30/23 21:44 GFR Calculation 122.0 mL/min (90- 130) 06/30/23 21:44 Glucose 100 mg/dL (65-115 ) 06/30/23 21:44 Calculated Osmolal ity 286 mOsm/kg (285- 295) 06/30/23 21:44 Calcium 9.1 mg/dL (8.5-10 .5) 06/30/23 21:44 Total Bilirubin 0.5 mg/dL (0.15-1 .2) 06/30/23 21:44 AST 35 U/L (0-40) 06/30/23 21:44 ALT 65 U/L (0-41) H 06/30/23 21:44 Alkaline Phosphata se 70 U/L (40-130) 06/30/23 21:44 Total Protein 7.5 g/dL (6.6-8.7 ) 06/30/23 21:44 Albumin 4.5 g/dL (3.5-5.2 ) 06/30/23 21:44 Globulin 3.0 g/dL (1.3-4.6 ) 06/30/23 21:44 Salicylates 0.4 mg/dL (3-10) L 06/30/23 21:44 Acetaminophen < 5.0 ug/mL (10-3 0) L 06/30/23 21:44 Ethyl Alcohol < 10 mg/dL (0-10) 06/30/23 21:44 Vitals: Last Vital Signs Temp 98 F 07/03/23 14:00 Pulse 92 07/03/23 14:00 Resp 16 07/03/23 14:00 BP 132/77 07/03/23 14:00 Pulse Ox 94 07/03/23 14:00 O2 Del Method Room Air 07/03/23 14:00 Discharge Plan Discharge Patient Disposition: Home Condition: Stable Prescriptions: New gabapentin 300 mg capsule 300 mg PO 0900,2100 30 Days Qty: 60 1RF olanzapine 10 mg Tablet 10 mg PO BEDTIME 30 Days Qty: 30 1RF citalopram 20 mg Tablet 20 mg PO DAILY 30 Days Qty: 30 1RF No Action No Known Home Medications Discharge Orders: Discharge Order (Routine); Ordered 07/03/23 Ordered By: Robert Geiger Referrals: Romulo Main MD [Primary Care Provider] - Discharge Diet: Regular Discharge Activity: Resume usual activity Patient Instructions: Gabapentin (By mouth), Olanzapine (By mouth) (Zyprexa, Zyprexa Zydis), Citalopram (By mouth) (Celexa), Methamphetamine Use Disorder (DC), Opioid Safety Discharge Attestations NPU Time Spent in Discharge Care*: less than 30 min Specific Discharge Activities: Specific discharge activities: educating patient, discussing with correctional casework specialist/social workers/dc planners, documenting/other paperwork and evaluating patient/reviewing data Coding Level of Care Code Acute Chg FW DC note Diagnoses Major depressive disorder F32.9 Opioid use F11.90 Cannabis abuse F12.10 Methamphetamine use disorder, severe F15.20
[2023-07-03 15:24] VITALS: BP 132/77; PULSE 92; RESP 16; TEMP 36.6; O2SAT 94
[2023-07-03] MEDS: hyDROXYzine 25 mg Capsule 50 MG PO (17:09)
== END 2023-07-03 18:30 | disposition home or self-care (01) | DRG 897 ==
LOC: ER 23:00 → NP 23:10
PROVIDERS: Admitting Provider Psychiatry & Neurology Psychiatry; Emergency Provider Family Medicine; PCP Family Medicine; Visit Provider Psychiatry & Neurology Psychiatry
DX: F15.10 Other stimulant abuse, uncomplicated (principal); R45.851 Suicidal ideations; F41.9 Anxiety disorder, unspecified; F32.A Depression, unspecified
CPT/HCPCS: 36415; 80053; 80307; 85025; 97165; 99285

== ENCOUNTER → 2023-08-05 11:42 | Outpatient (BNVA) | payer MEDICAID, SELFPAY | PROVIDERS: PCP Family Medicine; Visit Provider Nurse Practitioner Family | DX: J06.9 Acute upper respiratory infection, unspecified (principal) | CPT/HCPCS: 87426 ==

== ENCOUNTER → 2023-08-08 12:56 | Outpatient (BNVA) | payer MEDICAID, SELFPAY | PROVIDERS: PCP Family Medicine; Visit Provider Nurse Practitioner | DX: J06.9 Acute upper respiratory infection, unspecified (principal); Z20.822 Contact with and (suspected) exposure to COVID-19 | CPT/HCPCS: 87426 ==

== ENCOUNTER 2024-01-04 20:04 | Inpatient (IN) | payer MEDICAID, SELFPAY ==
[2024-01-04 20:10] VITALS: BP 132/81; PULSE 99; RESP 16; TEMP 36.6; O2SAT 97
--- NOTE | 2024-01-04 21:11 | ED_ITS ---
HPI - Anxiety 2 General: Chief Complaint: Anxiety Stated Complaint: anxiety, depression Time Seen by Provider: 01/04/24 20:09 Source: patient Mode of arrival: ambulatory Limitations: no limitations History of Present Illness: 23-year-old male who states that he has been having increasing depression and anxiety. He states that he is try to get into [facility] with state of the cecilia that he has been arguing with causing him to have severe depression. He states he had no suicidal plan or thoughts but states that he is felt very depressed and wants to get some help. He has been admitted before but states he has not been taking his meds that he was supposed to. Associated symptoms: Deny chest pain, chills, fever(s), headache(s), nausea or vomiting Review of Systems 2 Const: Denies: fever(s), chills, body aches or change in appetite ENMT: Denies: throat pain or dental pain Card: Denies: chest pain Resp: Denies: dyspnea GI: Denies: abdominal pain, nausea, vomiting or diarrhea Musc: Denies: neck pain or back pain Skin/Breast: Denies: rash Neuro: Denies: headache(s) Psych: Reports: depression CR[facility]ESS [facility] ED 2 PFSH: Medical History Fentanyl adverse reaction Patient denies any intent to poison himself. He denies suicidal or homicidal ideation, plan or intent. He is not depressed. Extensive education was undertaken regarding the severe risk of fentanyl. He understood and indicated he was going to avoid this friend who is giving him fentanyl. Methamphetamine abuse Physical Exam 2 Const: COMMON NORMALS: no acute distress, patient oriented x3 and healthy appearing HENMT: COMMON NORMALS: normocephalic and atraumatic HEAD & SCALP: n ormocephalic and atraumatic Neck/C-Spine: COMMON NORMALS: full ROM and supple Chest: COMMONS NORMALS: normal inspection of the chest Resp: COMMON NORMALS: normal respiratory effort Cardio: COMMON NORMALS: regular rate, regular rhythm and No murmurs present (Cardio) RATE: regular rate RHYTHM: regular rhythm Extremity: COMMON NORMALS: normal to inspection and full ROM Neuro: COMMON NORMALS: patient oriented x3, moves all extremities and no focal motor deficits Psych: COMMON NORMALS: mental status grossly normal, Normal thought process present and cooperative MOOD & AFFECT: Yes depressed mood THOUGHT PROCESS: Normal thought process present Skin: COMMON NORMALS: no rashes or lesions noted and no wounds GENERAL SKIN EXAM: no rashes or lesions noted Course 2 Vital Signs: Vital signs: Vital Signs Temperature 98 F 01/04/24 20:10 Pulse Rate 95 01/04/24 21:31 Respiratory Rate 18 01/04/24 21:31 Blood Pressure 132/81 01/04/24 21:31 Pulse Oximetry 97 01/04/24 21:31 Oxygen Delivery Me thod Room Air 01/04/24 20:10 MDM - Anxiety Medical Decision Making Patient presents here with depression along with anxiety he is not actively suicidal but voluntarily wants to be admitted to the psych redd patient is medically cleared I spoke to psychiatrist will admit at this time Medical Records I reviewed the patient's medical records. Lab Data I reviewed the patient's lab results. 01/04/24 21:18 01/04/24 21:18 Laboratory Results WBC 7.46 10^3/uL (3.29-11.43) 01/04/24 21:18 RBC 4.40 10^6/uL (3.85-5.65) 01/04/24 21:18 Hgb 13.30 g/dL (11.27-16.99) 01/04/24 21:18 Hct 40.5 % (37-53) 01/04/24 21:18 MCV 92.0 fl (82-101) 01/04/24 21:18 MCH 30.2 pg (27-33) 01/04/24 21:18 MCHC 32.8 g/dL (30-55) 01/04/24 21:18 RDW 13.2 % (12.1-15.1) 01/04/24 21:18 Plt Count 325 10^3/cmm (157-399) 01/04/24 21:18 MPV 9.7 fL (7.4-10.4) 01/04/24 21:18 Neut % (Auto) 52.6 % 01/04/24 21:18 Lymph % (Auto) 33.2 % 01/04/24 21:18 [place] % (Auto) 8.7 % 01/04/24 21:18 Eos % (Auto) 4.3 % 01/04/24 21:18 Baso % (Auto) 0.9 % 01/04/24 21:18 Neut # (Auto) 3.92 10^3/uL (1.8-7.7) 01/04/24 21:18 Lymph # (Auto) 2.5 10^3/uL (0.8-4.8) 01/04/24 21:18 [place] # (Auto) 0.7 10^3/uL (0.2-0.9) 01/04/24 21:18 Eos # (Auto) 0.3 10^3/uL (0.0-0.8) 01/04/24 21:18 Baso # (Auto) 0.1 10^3/uL (0.0-0.1) 01/04/24 21:18 Nucleated RBC % (auto) 0 % 01/04/24 21:18 Nucleated RBCs # 0.0 /100WBC 01/04/24 21:18 No radiology studies performed this visit Discharge Plan Discharge Patient Disposition: Admitted As Inpatient Admit Provider: Robert Geiger Clinical Impression: Major depressive disorder Condition: Stable Coding Level of Care Code ED Assistant Therapy Aide for Taya Major
[2024-01-04 21:31] VITALS: BP 132/81; PULSE 95; RESP 18; O2SAT 97
--- NOTE | 2024-01-04 21:38 | PC.NURSE ---
Patient was dressed out of all clothing and belongings by PSA. All patient's belongings besides a Bible, which PSA stated that she searched, were put in a labeled bag and moved out of the room. PSA remains present outside of patient's room and within view of patient.
[2024-01-04 21:43] LABS: Basophils # 0.1 10^3/uL (0.0-0.1); Basophils % 0.9 %; Eosinophils # 0.3 10^3/uL (0.0-0.8); Eosinophils % 4.3 %; Hematocrit 40.5 % (37-53); Lymphocytes # 2.5 10^3/uL (0.8-4.8); Lymphocytes % 33.2 %; Mean Corpuscular HGB Conc 32.8 g/dL (30-55); Mean Corpuscular Hemoglobin 30.2 pg (27-33); Mean Platelet Volume 9.7 fL (7.4-10.4); Monocytes # 0.7 10^3/uL (0.2-0.9); Monocytes % 8.7 %; Neutrophils # 3.92 10^3/uL (1.8-7.7); Neutrophils % 52.6 %; Nucleated Red Blood Cells % 0 %; Platelet Count 325 10^3/cmm (157-399); Red Cell Distribution Width 13.2 % (12.1-15.1); White Blood Count 7.46 10^3/uL (3.29-11.43)
[2024-01-04 21:56] LABS: Alanine Aminotransferase 68 U/L (0-41); Albumin Level 4.1 g/dL (3.5-5.2); Alkaline Phosphatase 68 U/L (40-130); Anion Gap 14.2 (5-19); Aspartate Amino Transferase 38 U/L (0-40); Blood Urea Nitrogen 9 mg/dL (6-20); Carbon Dioxide 26 mmol/L (22-29); Chloride 106 mmol/L (98-107); Creatinine Clr Calc Pharmacy 151.0588; Globulin 2.5 g/dL (1.3-4.6); Glomerular Filtration Rate 120.9 mL/min (90-130); Glucose 116 mg/dL (65-115); Osmolality Calculated 294 mOsm/kg (285-295); Potassium 4.2 mmol/L (3.5-5.1); Sodium 142 mmol/L (136-145); Total Bilirubin 0.2 mg/dL (0.15-1.2); Total Protein 6.6 g/dL (6.6-8.7)
[2024-01-04 21:58] LABS: Acetaminophen < 5.0 ug/mL (10-30); Alcohol Level < 10 mg/dL (0-10); Salicylate < 0.3 mg/dL (3-10)
[2024-01-04 22:04] VITALS: BP 127/64; PULSE 79; RESP 20; TEMP 36.3; O2SAT 100
[2024-01-04] MEDS: OLANZapine 5 mg ODT PO (23:21)
--- NOTE | 2024-01-04 23:22 | PC.NURSE ---
Admission Note Pt arrived to NPU by wheelchair at 2204. Pt stated that he is here because he got into an argument with the cecilia he is living with and it made him really anxious and depressed so he came here. Pt is pacing back and forth during assessment and appears to be very anxious. Pt denies si/hi/avh at this time. Pts skin assessment showed no abnormalities and he was placed into NPU scrubs. Pt was given Zyprexa 5mg PO at 2322 for agitation. Pt was orientated to the unit and is now observed sitting in dayroom watching TV. Behavioral monitoring continues
[2024-01-05 06:00] VITALS: RESP 15
--- NOTE | 2024-01-05 10:59 | P.NPUHP_ITS ---
Providers/Chief Complaint 2 Admitting Physician: Robert Geiger MD Primary Care Provider: Keaton Main Chief Complaint: anxiety, depression HPI NPU History of Present Illness Vishal Mckinley is a 23 year old male who presented to the emergency department with complaints of having increased depression and anxiety. The patient was admitted voluntarily for further evaluation and treatment to the neuropsychiatric unit. The patient had previously been hospitalized multiple times on the neuropsychiatric unit most recently in June 2023. The patient had reported that he has been planning on going to [place] [address] to learn more about God. The patient reports that he has been bothered most recently by a person that he describes having been on his mind for several years and states that he plans on harming this person if he does not get help by going to [place] [address]. The patient had reported that this person was like a friend on his shoulder but stated that he did not trust this person. The patient was a poor historian and reported that he was getting agitated . He had reported that he was not taking any medications. Patient had refused any urine drug screens at this time. Previous records had shown evidence of the patient having an extended history of stimulant abuse beginning as early as his teenage years with previous medications including zyprexa and Celexa having been prescribed in his last hospitalization. He reports that he currently lives in [place]. D/C Summary from NPU on 07/03/23 Reason for Visit anxiety Brief History: History of Present Illness Vishal Mckinley is a 22 year old male who presented to the emergency department with the following report: Chief Complaint: Anxiety Stated Complaint: anxiety Time Seen by Provider: 06/30/23 20:02 History of Present Illness: ? 22-year-old male with a history of mood disorder and drug abuse presents emergency room with for complaint of anxiety and depression for the past few days.? Patient denies any suicidal homicidal ideation.? No hallucination.? Patient reviews that he last used meth amphetamine few days ago.? Denies any shortness of breath, chest pain, fever or chills. ? Associated symptoms: Deny chills, fever(s) or headache(s). He was admitted to the neuropsychiatric unit for definitive treatment of those issues.? He presents today reporting that he does not remember this consumer loan underwriter from previous hospitalizations.? He reports that he had been doing well overall and had about a year of sobriety.? He reports that there was some acquaintances/friends that he recently was interacting with that got him off track and he does report that he relapsed and that has caused significant difficulties.? He denies being on any medication and reports that in general things are okay.? We reviewed his 2020 short stay summary as he was struggling with withdrawal and not the best historian.? He endorsed that it was an accurate depiction of his general history.? He reports however that recently he has been staying sober by working and staying really busy and not hanging around people from the past.? He is not really clear what the trigger was that got him off his positive run.? But he said that things had really gotten bad which led to him coming to the hospital.? He reports that it was methamphetamine again.? He endorsed wanting to work with the treatment team to get connected with sober living treatment.? He was somewhat unsure whether he wanted inpatient or outpatient but endorsed knowing he needs to get back on a recovery process.? We agree we will work with him over the weekend and see how he is doing at the beginning of the week.? An excerpt of his 2020 [facility] inpatient short stay summary is included below for context. Per his 01/19/2021 [facility] inpatient short stay summary: History of Present Illness Vishal Mckinley is a 20 year old male who presented to the emergency department with the following report: Chief Complaint: Overdose Stated Complaint: Overdose/SI Time Seen by Provider: 01/18/21 19:27 History of Present Illness: ? HPI Narrative: 20-year-old male presents after an overdose.? I took a bunch of fentanyl, and an 8 ball of meth, and almost an 8 ball of cocaine, and 3 green Xanax, and I swallowed all of it .? When asked why he says I let my depression get to me.? My sister and her boyfriend were fighting all day about drugs. ? He is a bit of a poor historian.? He does have a history of psychiatric problems.? He states that he came here for help, because his heart was racing and hurting.? 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 He is admitted to the neuropsychiatric unit for definitive treatment of those issues.? Vishal is known to this consumer loan underwriter with his last inpatient stay ending on 08/18/2020.? He has struggled with addiction especially methamphetamine for some time and has been resistant at times and ambivalent at others to treatment especially aggressive inpatient treatment.? He presents today on a voluntary commitment reporting a desire to get into treatment and that he had reached out to a facility and was interested in the possibility of inpatient at that facility.? He reports that he has had some clean time since he last saw this consumer loan underwriter however he reports that he has relapsed and he is really struggling again.? He was noted to have some tweaking behaviors and reports that his main goal of coming to the inpatient facility here was to avoid continued use and get himself together so he can get to the rehab.? We discussed the possibility of him staying in getting more stable but he endorses that he has been taking his medication and doing fine and that he really wants to just get to active treatment.? We discussed that he is a voluntary patient and that we would contact the facility and make sure that in fact he does have this circumstance set up however we also agreed that the only way we would feel comfortable with the process was if we deliver him directly from our facility to the rehab which he understood and agreed to proceed as is documented in this note.? He denies any substantive changes since he was seen last in excess of his last evaluation is included below for context.? He was clear and his desired outcome but was not very interested in answering a lot of questions and even discussed AMA discharge because he reports he gets by to drive home therefore he did not help. Per his 08/13/2020 [facility] inpatient psychiatric valuation: History of Present Illness Vishal Mckinley is a 19 year old male admitted to the psychiatric unit on a 96- hour involuntary commitment after stating staff that he was considering ending his own life. HPI Narrative: 19-year-old male states he has been having suicidal thoughts today with a plan to kill himself by overdosing.? Patient is voluntarily wanting to get help.? He states that he has been using drugs lately and used IV methamphetamine today.? He denies any worsening or improving factors.? Denies previous suicide attempts. On interview today, he states I just told him that because I knew I had to say that to get in here. ? Patient states he was under a lot of stress and did not know where to go.? He was only discharged from this unit 7 days ago.? Since then he has been sleeping in a bed at his cousin's apartment.? He has been using a methamphetamine on a regular but not daily basis.? He literally has nothing else to do.? He has been trying to get into a rehabilitation program.? He feels that a rehabilitation program will solve many of his psychosocial issues.? He believes that if he completes a rehabilitation program, he will either be allowed to return to his mother's home or he will be able to go live with an uncle and get a job with him.? Otherwise he has a really no plan of how to manage his life.? He engages in no enjoyable activities.? He feels hopeless.? He feels worthless.? He is tearful and sad on a daily basis except when he uses drugs.? He says that he tried to commit suicide once by fentanyl overdose but has not tried since then.? However he sometimes thinks about suicide.? He has no intent or plan at this time.? He denies the presence of auditory or visual hallucinations.? There is no indication of manic symptoms or history.? It is unclear to what degree his substance use may be amplifying his depressive symptoms.? They gave me some kind of medication for depression here but it did not help so I stopped taking it. ? He cannot name or recall the name of the medication. His complete psychiatric history will not be reviewed here given that this is his fifth admission in 6 months, fourth admission in 9 weeks and second admission in 8 days.? His history has been thoroughly reviewed and I refer you to those documents.? It is unclear that he has ever had a significant trial of medication for depression.? There is no record of him participating in outpatient treatment following discharge.? He claims to have achieved a GED but given his a level of problem solving skills exhibited during this interview, it should not be assumed that that claim is accurate.? There have been multiple recommendations for him to go to rehabilitation programs and he is in generally cooperative with the assessment/plan: This is a 20-year-old white male known to this consumer loan underwriter through multiple past encounters who presents to the neuropsychiatric unit with active use and addiction specifically with methamphetamine but with a rehab bed identified on a voluntary commitment with desire for assistance to get to that rehab bed. 1.? Continue current medication. 2.? Continue every 15 minute checks for safety. 3.? Encourage individual, group and milieu therapies. 4.? Encourage sober living treatment after discharge at the highest level of care to which he is willing to commit. 5.? Patient would benefit from care in the neuropsychiatric unit but ultimately the goal would be to get him to an inpatient bed which is available right now.? He voluntary patient was arranged this inpatient bed and so we will support his decision. Hospital Course Hospital Course He acclimated to the individual, group and milieu therapies provided.? He was most recently discharged 01/19/2021 and reported that he had done well in his recovery in general. He presented having relapsed and wanting to get restarted on his medication. It became clear that a part of his reason for coming was that he had a job he has been trying to get for a couple of months that he was supposed to start and he wanted to be in a better state of mind and have a better chance of keeping the job so he came to the hospital. We restarted his medications at appropriate doses such that he was on Zyprexa 10 mg p.o. nightly, Neurontin 300 mg p.o. twice daily and Celexa 20 mg p.o. daily at discharge. He worked with the social work team for appropriate discharge appointments and endorsed a plan to follow-up with his outpatient care and take his medications to ensure his success in sobriety. He had modest improvement during the stay and he was able to contract for safety outside the hospital prior to discharge.? During the hospitalization, patient had routine laboratory studies which were within normal limits except for few outliers.? Additionally there was a general medical evaluation which was also within normal limits and revealed no new acute processes. Discharge Summary: At the time of discharge, he denied psychosis or lethality.? Mood and anxiety were well managed.? Patient endorsed a plan to avoid all drugs of abuse and follow-up with the aftercare recommendations of the treatment team.? Patient was evaluated and deemed to be absent credible lethality, and had achieved significant benefit from an inpatient hospitalization, but was voluntary with no issues to place on hold noted, so was discharged. Meds NPU Home Medications Medication Instructions Recorded Confirmed Last Taken Type No Known Home Medications 01/04/24 01/04/24 Unknown History Allergies Allergy/AdvReac Type Severity Reaction Status Date / Time No Known Allergies Allergy Verified 08/08/23 12:44 PFSH NPU 2 PFSH: Medical History Fentanyl adverse reaction Patient denies any intent to poison himself. He denies suicidal or homicidal ideation, plan or intent. He is not depressed. Extensive education was undertaken regarding the severe risk of fentanyl. He understood and indicated he was going to avoid this friend who is giving him fentanyl. Methamphetamine abuse Mental Status Exam 2 MSE Comments: This is a well-nourished well-developed white adolescent male in hospital scrubs with adequate grooming and fleeting eye contact who appeared very guarded. No abnormal movements except for signficant psychomotor agitation as he was clutching a bible. He was minimally cooperative with exam in moderate to severe distress. Speech was increased in rate and normal volume. Mood was described as fine. Affect was irritable and mood incongruent. Thought process was linear initially but somewhat expansive. Thought content: Homicidal ideation noted with unknown target. He appeared actively paranoid with quaker delusions. He did not appear to be responding to internal stimuli. He is alert and oriented x3. Insight was impaired and judgment is poor and impulse control is impaired. Recent and remote memory appears poor. Vitals/I&O/Wt Last Vital Signs Temp 97.4 F L 01/04/24 22:04 Pulse 79 01/04/24 22:04 Resp 15 01/05/24 06:00 BP 127/64 01/04/24 22:04 Pulse Ox 100 01/04/24 22:04 O2 Del Method Room Air 01/04/24 22:05 Weight last 48 hrs Weight 74.843 kg Data NPU 01/04/24 21:18 01/04/24 21:18 A&P Assessment and plan (1) Cannabis abuse: (2) Methamphetamine use disorder, severe: (3) Unspecified psychosis: Plan This is a 23-year-old white male with a long history of addiction with significant methamphetamine use disorder history who presents with psychosis with homicidal ideation and depression. 1. Will involuntarily hospitalize if necessary as patient appears threatening and unable to leave the hospital voluntarily. 2. Continue every 15 minute checks for safety. 3. Encourage individual, group and milieu therapy. 4. Encourage sober living treatment after discharge at the highest level of care to which she is willing to commit. Involuntary Hold Information 2 96 Hour Hold: 96 Hour Involuntary Admission: No Attestations NPU 2 Medical Necessity Statement*: Inpatient hospitalization is medically necessary and the clinically appropriate intervention at this time. We will initiate and monitor and make changes to medications as indicated. He will be hospital for over 2 midnights. Likely length of stay 5-7 days. Coding Level of Care Code Acute Code for [facility] Diagnoses Cannabis abuse F12.10 Methamphetamine use disorder, severe F15.20 Unspecified psychosis F29
[2024-01-05 14:00] VITALS: BP 102/52; PULSE 64; RESP 15; TEMP 36.6; O2SAT 98
--- NOTE | 2024-01-05 17:49 | PC.NURSE ---
room searches preformed by staff. no contraband found during search.
[2024-01-05] MEDS: OLANZapine 5 mg ODT PO (19:59)
--- NOTE | 2024-01-05 20:00 | PC.NURSE ---
pre 96 hour serving agitation.
[2024-01-05 20:04] LABS: Amphetamines Screen Urine Positive (Negative); Barbiturates Screen Urine Negative (Negative); Benzodiazepines Screen Urine Negative (Negative); Cocaine Screen Urine Negative (Negative); Opiate Screen Urine Negative (Negative); PCP Screen Urine Negative (Negative); THC Screen Urine Positive (Negative)
--- NOTE | 2024-01-05 20:07 | PC.NURSE ---
Asked pt to obtain vital signs. Pt stated NO . Respiration Rate 18
[2024-01-05 20:08] VITALS: RESP 18
--- NOTE | 2024-01-05 20:40 | PC.NURSE ---
Patient was given 96 hour hold Notice of rights of Involuntary Patient as well as a copy of [facility] booklet @ 20:30. Patient read and was explained rights by this RN. Patient served by this RN accompanied by Security (Brandon) and sales clerk supervisor (Samra Black). Patient acknowledged receipt and verbalized understanding.
[2024-01-06 06:00] VITALS: RESP 15
--- NOTE | 2024-01-06 13:08 | P.NPUPN_ITS ---
Subjective NPU 2 Subjective: Patient presented today reporting that he is feeling a little better from yesterday. Continues to talk about the situation that he feels created the challenge but seems ambivalent about truly acknowledging the issue that really led to the problem which appears to be his methamphetamine use. He reports feeling less agitated and homicidal to the source of his angst and reports continuing to be fully committed to going to [place] [id number] to try to manage the addiction challenges that he is having. We discussed the risks, benefits and alternatives of considering some medication options and he understood and agreed to consider that. Mental Status Exam 2 MSE Comments: This is a well-nourished well-developed white adolescent male in hospital scrubs with adequate grooming and fleeting eye contact. No abnormal movements except for mild psychomotor agitation. He was mostly cooperative with exam in moderate distress. Speech was More normal in rate and normal volume. Mood was described as a little better. Affect was irritable and mood incongruent. Thought process was linear. Thought content: No suicidal but homicidal ideation noted with unknown target. He appeared actively paranoid with mormonism delusions. He did not appear to be responding to internal stimuli. He is alert and oriented x3. Insight was impaired and judgment is poor and impulse control is impaired. Recent and remote memory appears poor. Vitals/I&O/Wt Last Vital Signs Temp 97.9 F 01/05/24 14:00 Pulse 64 01/05/24 14:00 Resp 15 01/06/24 06:00 BP 102/52 01/05/24 14:00 Pulse Ox 98 01/05/24 14:00 O2 Del Method Room Air 01/04/24 22:05 Weight last 48 hrs Weight 74.843 kg Data NPU 01/04/24 21:18 01/04/24 21:18 A&P Assessment and plan (1) Cannabis abuse: (2) Methamphetamine use disorder, severe: (3) Unspecified psychosis: Plan This is a 23-year-old white male with a long history of addiction with significant methamphetamine use disorder history who presents with psychosis with homicidal ideation and depression. 1. Placed on 96 hour hold. 2. Continue every 15 minute checks for safety. 3. Encourage individual, group and milieu therapy. 4. Encourage sober living treatment after discharge at the highest level of care to which she is willing to commit. 5. Discussed consideration of medication while he awaits discharge to [facility]:16. Involuntary Hold Information 2 96 Hour Hold: 96 Hour Involuntary Admission: No Attestations NPU 2 Medical Necessity Statement*: Inpatient hospitalization is medically necessary and the clinically appropriate intervention at this time. We will initiate and monitor and make changes to medications as indicated. Likely length of stay 4-6 days. Coding Level of Care Code Acute Code for [facility] Diagnoses Cannabis abuse F12.10 Methamphetamine use disorder, severe F15.20 Unspecified psychosis F29
[2024-01-06 14:00] VITALS: BP 125/63; PULSE 84; RESP 16; O2SAT 95
[2024-01-06 20:42] VITALS: BP 130/69; PULSE 74; RESP 16; TEMP 36.7; O2SAT 98
[2024-01-06] MEDS: OLANZapine 5 mg ODT PO (20:51)
[2024-01-07 06:00] VITALS: RESP 16
--- NOTE | 2024-01-07 06:18 | PC.NURSE ---
Asked pt to obtain vital signs. pt stated no not right now respiration rate 16.
--- NOTE | 2024-01-07 07:49 | W.PM.NPUPNS ---
Subjective NPU Subjective: Patient presented today reporting that he was doing okay. He was quite demanding and saying that he was leaving for [place] [facility]:16 in the morning not ready. Further inspection into the situation reminded this treatment team that he had been here previously and this was the discharge plan and on the way down he took his medications that had been obtained prior to discharge and overdosed on them in the drive down leading to a hospitalization once he arrived. He denied recollection of what happened the last time he was reportedly going to [facility]:16. We discussed needing to talk with his mother and with the people from down there with concerns that he did not seem stable enough to make this decision given his high level of irritability during the discussion. Mental Status Exam MSE Comments: This is a well-nourished well-developed white adolescent male in hospital scrubs with adequate grooming and fleeting eye contact. No abnormal movements except for mild psychomotor agitation. He was less cooperative with exam today in moderate distress. Speech was More normal in rate and normal volume. Mood was described as a little better. Affect was irritable and mood incongruent. Thought process was linear. Thought content: No suicidal but homicidal ideation noted with unknown target. He appeared actively paranoid with anglican delusions. He did not appear to be responding to internal stimuli. He is alert and oriented x3. Insight was impaired and judgment is poor and impulse control is impaired. Recent and remote memory appears poor. Vitals/I&O/Wt Last Vital Signs Temp 98.0 F 01/06/24 20:42 Pulse 74 01/06/24 20:42 Resp 16 01/07/24 06:00 BP 130/69 01/06/24 20:42 Pulse Ox 98 01/06/24 20:42 O2 Del Method Room Air 01/06/24 20:42 Data NPU 01/04/24 21:18 01/04/24 21:18 A&P Assessment and plan (1) Cannabis abuse: (2) Methamphetamine use disorder, severe: (3) Unspecified psychosis: Plan This is a 23-year-old white male with a long history of addiction with significant methamphetamine use disorder history who presents with psychosis with homicidal ideation and depression. 1. Placed on 96 hour hold. 2. Continue every 15 minute checks for safety. 3. Encourage individual, group and milieu therapy. 4. Encourage sober living treatment after discharge at the highest level of care to which she is willing to commit. 5. Discussed consideration of medication while he awaits discharge to [facility]. 6. Get collateral information on [facility]:16 and speak with mother. Involuntary Hold Information 96 Hour Hold: 96 Hour Involuntary Admission: No Attestations NPU Medical Necessity Statement*: Inpatient hospitalization is medically necessary and the clinically appropriate intervention at this time. We will initiate and monitor and make changes to medications as indicated. Likely length of stay 3-5 days. Coding Level of Care Code Acute Code for [facility] Fwd Diagnoses Cannabis abuse F12.10 Methamphetamine use disorder, severe F15.20 Unspecified psychosis F29
[2024-01-07 14:00] VITALS: BP 109/69; PULSE 139; RESP 16; TEMP 36.6; O2SAT 97
--- NOTE | 2024-01-07 18:50 | PC.NURSE ---
Called patient's mother Dinorah, . Patients mother denies setting up patient's place at [facility] 3:16. Patient's mother states that her son told her today to pick him up from the hospital at 0800 so that he can be at [facility] 3:16 by 10am. Patient's mother states that the place is somewhere past [facility]. Patient's mother also said that the last time we sent patient to rehab, patient overdosed on his Meds to Beds in the car. 911 was called and he was placed into another hospital near the rehab center.
[2024-01-07 19:25] VITALS: BP 118/75; PULSE 99; RESP 15; TEMP 36.7; O2SAT 99
[2024-01-07] MEDS: OLANZapine 5 mg ODT PO (21:46)
[2024-01-08 06:00] VITALS: RESP 22
[2024-01-08] MEDS: diphenhydrAMINE 50 mg/mL SDV 1mL IM (10:00)
[2024-01-08] MEDS: haloperidol inj 5 mg/mL INJ 1 mL IM (10:00)
[2024-01-08] MEDS: LORazepam 2 mg/mL INJ 1 mL IM (10:00)
--- NOTE | 2024-01-08 11:04 | P.NPUPN_ITS ---
Subjective NPU 2 Subjective: Patient presented today reporting that he is struggling with not going to [facility] today. He reports that he does not understand why he was not discharged and that he had made arrangements for this before he came to the hospital. We discussed his last trip down to a program when there were concerns of him not being quite ready and him whenever making it to that program. We discussed that the program except people every week and that our hope is for him to be in a better state mentally before he makes that trip. He continued to lobby for discharge sooner rather than later, continue to demonstrate limited insight into his circumstance and the concerns for his sobriety and wellness. He continued to be resistant to any medication. Mental Status Exam 2 MSE Comments: This is a well-nourished well-developed white adolescent male in hospital scrubs with adequate grooming and fleeting eye contact. No abnormal movements except for mild psychomotor agitation. He was less cooperative with exam in moderate distress. Speech was more normal in rate and normal volume. Mood was described as a little better. Affect was irritable and mood incongruent. Thought process was linear. Thought content: No suicidal but homicidal ideation noted with unknown target. He appeared actively paranoid with orthodoxy delusions. He did not appear to be responding to internal stimuli. He is alert and oriented x3. Insight was impaired and judgment is poor and impulse control is impaired. Recent and remote memory appears poor. Vitals/I&O/Wt Last Vital Signs Temp 98.0 F 01/07/24 19:25 Pulse 99 01/07/24 19:25 Resp 22 H 01/08/24 06:00 BP 118/75 01/07/24 19:25 Pulse Ox 99 01/07/24 19:25 O2 Del Method Room Air 01/07/24 19:25 Weight last 48 hrs Weight 74.843 kg Data NPU 01/04/24 21:18 01/04/24 21:18 A&P Assessment and plan (1) Cannabis abuse: (2) Methamphetamine use disorder, severe: (3) Unspecified psychosis: Plan This is a 23-year-old white male with a long history of addiction with significant methamphetamine use disorder history who presents with psychosis with homicidal ideation and depression. 1. Placed on 96 hour hold. 2. Continue every 15 minute checks for safety. 3. Encourage individual, group and milieu therapy. 4. Encourage sober living treatment after discharge at the highest level of care to which she is willing to commit. 5. Discussed consideration of medication while he awaits discharge to [facility]. 6. Get collateral information on [facility] and speak with mother. Involuntary Hold Information 2 96 Hour Hold: 96 Hour Involuntary Admission: No Attestations NPU 2 Medical Necessity Statement*: Inpatient hospitalization is medically necessary and the clinically appropriate intervention at this time. We will initiate and monitor and make changes to medications as indicated. Likely length of stay 2-4 days. Coding Level of Care Code Acute Code for [facility] Diagnoses Cannabis abuse F12.10 Methamphetamine use disorder, severe F15.20 Unspecified psychosis F29
--- NOTE | 2024-01-08 11:06 | PC.NURSE ---
Pt up at the nurses station yelling and raising his voice. Pt stating that he Demands to be discharged to his mother this morning, that his mom was his ride to [facility]. Pt is manic this morning and unable to be reasoned with. Security was called to be on standby in the unit. Pt still demanding to speak to the Doctor. Pt was given IM medications after he had agreed to take oral meds, then refused oral meds. Pt did take the IM injections without distress and tolerated well.
[2024-01-08 14:00] VITALS: RESP 16
[2024-01-08] MEDS: OLANZapine 5 mg ODT PO (19:32)
[2024-01-08 19:51] VITALS: BP 105/69; PULSE 116; RESP 18; TEMP 36.6; O2SAT 94
[2024-01-09 06:00] VITALS: BP 110/66; PULSE 92; RESP 20; TEMP 36.3; O2SAT 98
[2024-01-09 14:00] VITALS: BP 118/70; PULSE 75; RESP 16; TEMP 36.6; O2SAT 98
[2024-01-09] MEDS: hyDROXYzine 25 mg Capsule 50 MG PO (14:39)
[2024-01-09] MEDS: OLANZapine 5 mg ODT PO (15:39)
--- NOTE | 2024-01-09 16:09 | P.NPUPN_ITS ---
Subjective NPU 2 Subjective: Patient presented today reporting that he is doing okay. He was once again fairly perseverative about discharge and [facility]. He really struggled as we talked about the reasoning behind why we did not discharge him on Tuesday and we once again reviewed concerns about irritability and making sure that he was in the right state of mind to go down and be successful in their program. We discussed being hopeful that by the time his 96-hour hold is up on Tuesday that he will be in a more adaptive state of mind so that success at the program on Tuesday might be possible. We also talked about the pitfalls that might await from discharge to Tuesday and he reported that he needs to avoid a female cousin of his but that if he does that he feels he will be able to manage his sobriety over the interim. He continued to deny any desire to start any medication. Mental Status Exam 2 MSE Comments: This is a well-nourished well-developed white adolescent male in hospital scrubs with adequate grooming and fleeting eye contact. No abnormal movements except for mild psychomotor agitation. He was less cooperative with exam in moderate distress. Speech was more normal in rate and normal volume. Mood was described as a little better. Affect was a little less irritable. Thought process was linear. Thought content: No suicidal but homicidal ideation noted with unknown target. He appeared actively paranoid with religion delusions. He did not appear to be responding to internal stimuli. He is alert and oriented x3. Insight was impaired and judgment is poor and impulse control is impaired. Recent and remote memory appears poor. Vitals/I&O/Wt Last Vital Signs Temp 97.9 F 01/09/24 14:00 Pulse 75 01/09/24 14:00 Resp 16 01/09/24 14:00 BP 118/70 01/09/24 14:00 Pulse Ox 98 01/09/24 14:00 O2 Del Method Room Air 01/09/24 14:00 Weight last 48 hrs Weight 74.843 kg Data NPU 01/04/24 21:18 01/04/24 21:18 A&P Assessment and plan (1) Cannabis abuse: (2) Methamphetamine use disorder, severe: (3) Unspecified psychosis: Plan This is a 23-year-old white male with a long history of addiction with significant methamphetamine use disorder history who presents with psychosis with homicidal ideation and depression. 1. Placed on 96 hour hold. 2. Continue every 15 minute checks for safety. 3. Encourage individual, group and milieu therapy. 4. Encourage sober living treatment after discharge at the highest level of care to which she is willing to commit. 5. Discussed consideration of medication. Involuntary Hold Information 2 96 Hour Hold: 96 Hour Involuntary Admission: No Attestations NPU 2 Medical Necessity Statement*: Inpatient hospitalization is medically necessary and the clinically appropriate intervention at this time. We will initiate and monitor and make changes to medications as indicated. Likely length of stay 1-3 days. Coding Level of Care Code Acute Code for [facility] Diagnoses Cannabis abuse F12.10 Methamphetamine use disorder, severe F15.20 Unspecified psychosis F29
--- NOTE | 2024-01-09 17:54 | PC.NURSE ---
room searched by staff, no contraband found at this time.
[2024-01-09 20:19] VITALS: BP 117/68; PULSE 110; RESP 17; TEMP 36.6; O2SAT 96
[2024-01-10] MEDS: OLANZapine 5 mg ODT PO ×2 (12:13→19:32)
[2024-01-10] MEDS: nicotine 21 mg Patch 1 PATCH TRANSDERMA (12:14)
--- NOTE | 2024-01-10 12:51 | P.NPUPN_ITS ---
Subjective NPU 2 Subjective: Patient presents today reporting that things are going okay. He continues to be quite focused on discharge but able to be redirected and have a conversation about the treatment team's concern about him not following through with his commitment to going to [facility] or any other sober living program. He had a long discussion about the reasons why we feel it is imperative that he gets into a long-term program to increase the likelihood that he might have success with his recovery. We discussed the possibility of discharge tomorrow versus having his hold extended. Mental Status Exam 2 MSE Comments: This is a well-nourished well-developed white adolescent male in hospital scrubs with adequate grooming and fleeting eye contact. No abnormal movements except for mild psychomotor agitation. He was more cooperative with exam in only mild distress. Speech was more normal in rate and normal volume. Mood was described as a little better. Affect was less irritable. Thought process was linear. Thought content: No suicidal but homicidal ideation noted with unknown target. He appeared actively paranoid with advent delusions. He did not appear to be responding to internal stimuli. He is alert and oriented x3. Insight and judgment limited but improving and impulse control is improving. Recent and remote memory appears poor. Vitals/I&O/Wt Last Vital Signs Temp 97.9 F 01/09/24 20:19 Pulse 110 H 01/09/24 20:19 Resp 17 01/09/24 20:19 BP 117/68 01/09/24 20:19 Pulse Ox 96 01/09/24 20:19 O2 Del Method Room Air 01/09/24 20:19 Data NPU 01/04/24 21:18 01/04/24 21:18 A&P Assessment and plan (1) Cannabis abuse: (2) Methamphetamine use disorder, severe: (3) Unspecified psychosis: Plan This is a 23-year-old white male with a long history of addiction with significant methamphetamine use disorder history who presents with psychosis with homicidal ideation and depression. 1. 96-hour hold expires tomorrow we will consider whether to discharge or file for 21-day hold. 2. Continue every 15 minute checks for safety. 3. Encourage individual, group and milieu therapy. 4. Encourage sober living treatment after discharge at the highest level of care to which she is willing to commit. 5. Discussed consideration of medication. Involuntary Hold Information 2 96 Hour Hold: 96 Hour Involuntary Admission: No Attestations NPU 2 Medical Necessity Statement*: Inpatient hospitalization is medically necessary and the clinically appropriate intervention at this time. We will initiate and monitor and make changes to medications as indicated. Likely length of stay 1-3 days. Coding Level of Care Code Acute Code for [facility] Diagnoses Cannabis abuse F12.10 Methamphetamine use disorder, severe F15.20 Unspecified psychosis F29
[2024-01-10 14:00] VITALS: BP 120/78; PULSE 120; RESP 16; TEMP 36.5; O2SAT 95
[2024-01-10] MEDS: hyDROXYzine 25 mg Capsule 50 MG PO (15:11)
[2024-01-10] MEDS: benztropine 1 mg Tablet PO (15:11)
[2024-01-10] MEDS: haloperidol 5 mg Tablet PO (15:11)
[2024-01-10] MEDS: acetaminophen 325 mg Tablet 650 MG PO (17:50)
--- NOTE | 2024-01-10 18:41 | PC.NURSE ---
Room check completed with no contraband recovered.
[2024-01-10 19:40] VITALS: BP 108/57; PULSE 122; RESP 18; TEMP 36.2; O2SAT 96
[2024-01-10] MEDS: quetiapine 100 mg Tablet PO (20:29)
[2024-01-10] MEDS: trazodone 50 mg Tablet PO (22:43)
--- NOTE | 2024-01-11 06:39 | PC.NURSE ---
vs not done resp documented pt had a hard time getting to sleep last night
--- NOTE | 2024-01-11 12:03 | P.NPUDS_ITS ---
Diagnoses at Discharge Discharge Diagnosis (1) Cannabis abuse: Status: Acute (2) Methamphetamine use disorder, severe: Status: Acute (3) Unspecified psychosis: Status: Acute Reason for Visit Reason for Visit: anxiety, depression Brief History: History of Present Illness Vishal Mckinley is a 23 year old male who presented to the emergency department with complaints of having increased depression and anxiety. The patient was admitted voluntarily for further evaluation and treatment to the neuropsychiatric unit. The patient had previously been hospitalized multiple times on the neuropsychiatric unit most recently in June 2023. The patient had reported that he has been planning on going to [place] [id number] to learn more about God. The patient reports that he has been bothered most recently by a person that he describes having been on his mind for several years and states that he plans on harming this person if he does not get help by going to [place] [id number]. The patient had reported that this person was like a friend on his shoulder but stated that he did not trust this person. The patient was a poor historian and reported that he was getting agitated . He had reported that he was not taking any medications. Patient had refused any urine drug screens at this time. Previous records had shown evidence of the patient having an extended history of stimulant abuse beginning as early as his teenage years with previous medications including zyprexa and Celexa having been prescribed in his last h ospitalization. He reports that he currently lives in [place]. D/C Summary from [facility] on 07/03/23 Reason for Visit anxiety Brief History: History of Present Illness Vishal Mckinley is a 22 year old male who presented to the emergency department with the following report: Chief Complaint: Anxiety Stated Complaint: anxiety Time Seen by Provider: 06/30/23 20:02 History of Present Illness: 22-year-old male with a histor y of mood disorder and drug abuse presents emergency room with for complaint of anxiety and depression for the past few days. Patient denies any suicidal homicidal ideation. No hallucination. Patient reviews that he last used meth amphetamine few days ago. Denies any shortness of breath, chest pain, fever or chills. Associated symptoms: Deny chills, fever(s) or headache(s). He was admitted to the neuropsychiatric unit for definitive treatment of those issues. He presents today reporting that he does not remember this underwriter mortgage loan from previous hospitalizations. He reports that he had been doing well overall and had about a year of sobriety. He reports that there was some acquaintances/friends that he recently was interacting with that got him off track and he does report that he relapsed and that has caused significant difficulties. He denies being on any medication and reports that in general things are okay. We reviewed his 2020 short stay summary as he was struggling with withdrawal and not the best historian. He endorsed that it was an accurate depiction of his general history. He reports however that recently he has been staying sober by working and staying really busy and not hanging around people from the past. He is not really clear what the trigger was that got him off his positive run. But he said that things had really gotten bad which led to him coming to the hospital. He reports that it was methamphetamine again. He endorsed wanting to work with the treatment team to get connected with sober living treatment. He was somewhat unsure whether he wanted inpatient or outpatient but endorsed knowing he needs to get back on a recovery process. We agree we will work with him over the weekend and see how he is doing at the beginning of the week. An excerpt of his 2020 [facility] inpatient short stay summary is included below for context. Per his 01/19/2021 [facility] inpatient short stay summary: History of Present Illness Vishal Mckinley is a 20 year old male who presented to the emergency department with the following report: Chief Complaint: Overdose Stated Complaint: Overdose/SI Time Seen by Provider: 01/18/21 19:27 History of Present Illness: HPI Narrative: 20-year-old male presents after an overdose. I took a bunch of fentanyl, and an 8 ball of meth, and almost an 8 ball of cocaine, and 3 green Xanax, and I swallowed all of it . When asked why he says I let my depression get to me. My sister and her boyfriend were fighting all day about drugs. He is a bit of a poor historian. He does have a history of psychiatric problems. He states that he came here for help, because his heart was racing and hurting. 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 He is admitted to the neuropsychiatric unit for definitive treatment of those issues. Vishal is known to this underwriter mortgage loan with his last inpatient stay ending on 08/18/2020. He has struggled with addiction especially methamphetamine for some time and has been resistant at times and ambivalent at others to treatment especially aggressive inpatient treatment. He presents today on a voluntary commitment reporting a desire to get into treatment and that he had reached out to a facility and was interested in the possibility of inpatient at that facility. He reports that he has had some clean time since he last saw this underwriter mortgage loan however he reports that he has relapsed and he is really struggling a gain. He was noted to have some tweaking behaviors and reports that his main goal of coming to the inpatient facility here was to avoid continued use and get himself together so he can get to the rehab. We discussed the possibility of him staying in getting more stable but he endorses that he has been taking his medication and doing fine and that he really wants to just get to active treatment. We discussed that he is a voluntary patient and that we would contact the facility and make sure that in fact he does have this circumstance set up however we also agreed that the only way we would feel comfortable with the process was if we deliver him directly from our facility to the rehab which he understood and agreed to proceed as is documented in this note. He denies any substantive changes since he was seen last in excess of his last evaluation is included below for context. He was clear and his desired outcome but was not very interested in answering a lot of questions and even discussed AMA discharge because he reports he gets by to drive home therefore he did not help. Per his 08/13/2020 [facility] inpatient psychiatric valuation: History of Present Illness Vishal Mckinley is a 19 year old male admitted to the psychiatric unit on a 96- hour involuntary commitment after stating staff that he was considering ending his own life. HPI Narrative: 19-year-old male states he has been having suicidal thoughts today with a plan to kill himself by overdosing. Patient is voluntarily wanting to get help. He states that he has been using drugs lately and used IV meth amphetamine today. He denies any worsening or improving factors. Denies previous suicide attempts. On interview today, he states I just told him that because I knew I had to say that to get in here. Patient states he was under a lot of stress and did not know where to go. He was only discharged from this unit 7 days ago. Since then he has been sleeping in a bed at his cousin's apartment. He has been using a methamphetamine on a regular but not daily basis. He literally has nothing else to do. He has been trying to get into a rehabilitation program. He feels that a rehabilitation program will solve many of his psychosocial issues. He believes that if he completes a rehabilitation program, he will either be allowed to return to his mother's home or he will be able to go live with an uncle and get a job with him. Otherwise he has a really no plan of how to manage his life. He engages in no enjoyable activities. He feels hopeless. He feels worthless. He is tearful and sad on a daily basis except when he uses drugs. He says that he tried to commit suicide once by fentanyl overdose but has not tried since then. However he sometimes thinks about suicide. He has no intent or plan at this time. He denies the presence of auditory or visual hallucinations. There is no indication of manic symptoms or history. It is unclear to what degree his substance use may be amplifying his depressive symptoms. They gave me some kind of medication for depression here but it did not help so I stopped taking it. He cannot name or recall the name of the medication. His complete psychiatric history will not be reviewed here given that this is his fifth admission in 6 months, fourth admission in 9 weeks and second admission in 8 days. His history has been thoroughly reviewed and I refer you to those documents. It is unclear that he has ever had a significant trial of medication for depression. There is no record of him participating in outpatient treatment following discharge. He claims to have achieved a GED but given his a level of problem solving skills exhibited during this interview, it should not be assumed that that claim is accurate. There have been multiple recommendations for him to go to rehabilitation programs and he is in generally cooperative with the assessment/plan: This is a 20-year-old white male known to this underwriter mortgage loan through multiple past encounters who presents to the neuropsychiatric unit with active use and addiction specifically with methamphetamine but with a rehab bed identified on a voluntary commitment with desire for assistance to get to that rehab bed. 1. Continue current medication. 2. Continue every 15 minute checks for safety. 3. Encourage individual, group and marissa eu therapies. 4. Encourage sober living treatment aft er discharge at the highest level of care to which he is willing to commit. 5. Patient would benefit from care in t neuropsychiatric unit but ultimately the goal would be to get him to an inpatient bed which is available right now. He voluntary patient was arranged this inpatient bed and so we will support his decision.. Hospital Course Hospital Course He acclimated to the individual, group and milieu therapies provided. He presented having relapsed and wanting to get restarted on his medication and wanting to restart his medications. We began Zyprexa 5 mg, Seroquel 100 mg and trazodone as well. He worked with the social work team for appropriate discharge appointments and endorsed a plan to follow-up with [facility] as well as his outpatient care and take his medications to ensure his success in sobriety. He had modest improvement during the stay and he was able to contract for safety outside the hospital prior to discharge. During the hospitalization, patient had routine laboratory studies which were within normal limits except for few outliers. Additionally there was a general medical evaluation which was also within normal limits and revealed no new acute processes. Discharge Summary: At the time of discharge, he denied psychosis or lethality. Mood and anxiety were well managed. Patient endorsed a plan to avoid all drugs of abuse and follow-up with the aftercare recommendations of the treatment team. Patient was evaluated and deemed to be absent credible lethality, and had achieved significant benefit from an inpatient hospitalization, so was discharged Involuntary Hold Information 96 Hour Hold: 96 Hour Involuntary Admission: No Mental Status Exam MSE Comments: This is a well-nourished well-developed white adolescent male in hospital scrubs with adequate grooming and fleeting eye contact. No abnormal movements except for mild psychomotor agitation. He was more cooperative with exam in only mild distress. Speech was more normal in rate and normal volume. Mood was described as a little better. Affect was less irritable. Thought process was linear. Thought content: No suicidal but homicidal ideation noted with unknown target. He appeared actively paranoid with christian delusions. He did not appear to be responding to internal stimuli. He is alert and oriented x3. Insight and judgment limited but improving and impulse control is improving. Recent and remote memory appears poor. Discharge Data Studies Completed and Pending: Laboratory Results WBC 7.46 10^3/uL (3.2 9-11.43) 01/04/24 21:18 RBC 4.40 10^6/uL (3.8 5-5.65) 01/04/24 21:18 Hgb 13.30 g/dL (11.27 -16.99) 01/04/24 21:18 Hct 40.5 % (37-53) 01/04/24 21:18 MCV 92.0 fl (82-101) 01/04/24 21:18 MCH 30.2 pg (27-33) 01/04/24 21:18 MCHC 32.8 g/dL (30-55) 01/04/24 21:18 RDW 13.2 % (12.1-15.1 ) 01/04/24 21:18 Plt Count 325 10^3/cmm (157 -399) 01/04/24 21:18 MPV 9.7 fL (7.4-10.4) 01/04/24 21:18 Neut % (Auto) 52.6 % 01/04/24 21:18 Lymph % (Auto) 33.2 % 01/04/24 21:18 Harper % (Auto) 8.7 % 01/04/24 21:18 Eos % (Auto) 4.3 % 01/04/24 21:18 Baso % (Auto) 0.9 % 01/04/24 21:18 Neut # (Auto) 3.92 10^3/uL (1.8 -7.7) 01/04/24 21:18 Lymph # (Auto) 2.5 10^3/uL (0.8- 4.8) 01/04/24 21:18 Harper # (Auto) 0.7 10^3/uL (0.2- 0.9) 01/04/24 21:18 Eos # (Auto) 0.3 10^3/uL (0.0- 0.8) 01/04/24 21:18 Baso # (Auto) 0.1 10^3/uL (0.0- 0.1) 01/04/24 21:18 Nucleated RBC % (a uto) 0 % 01/04/24 21:18 Nucleated RBCs # 0.0 /100WBC 01/04/24 21:18 Sodium 142 mmol/L (136-1 45) 01/04/24 21:18 Potassium 4.2 mmol/L (3.5-5 .1) 01/04/24 21:18 Chloride 106 mmol/L (98-10 7) 01/04/24 21:18 Carbon Dioxide 26 mmol/L (22-29) 01/04/24 21:18 Anion Gap 14.2 (5-19) 01/04/24 21:18 BUN 9 mg/dL (6-20) 01/04/24 21:18 Creatinine 0.8 mg/dL (0.7-1. 2) 01/04/24 21:18 GFR Calculation 120.9 mL/min (90- 130) 01/04/24 21:18 Glucose 116 mg/dL (65-115 ) H 01/04/24 21:18 Calculated Osmolal ity 294 mOsm/kg (285- 295) 01/04/24 21:18 Calcium 9.0 mg/dL (8.5-10 .5) 01/04/24 21:18 Total Bilirubin 0.2 mg/dL (0.15-1 .2) 01/04/24 21:18 AST 38 U/L (0-40) 01/04/24 21:18 ALT 68 U/L (0-41) H 01/04/24 21:18 Alkaline Phosphata se 68 U/L (40-130) 01/04/24 21:18 Total Protein 6.6 g/dL (6.6-8.7 ) 01/04/24 21:18 Albumin 4.1 g/dL (3.5-5.2 ) 01/04/24 21:18 Globulin 2.5 g/dL (1.3-4.6 ) 01/04/24 21:18 Salicylates < 0.3 mg/dL (3-10 ) L 01/04/24 21:18 Urine Opiates Scre en Negative ng/mL (N egative) 01/05/24 19:00 Acetaminophen < 5.0 ug/mL (10-3 0) L 01/04/24 21:18 Ur Barbiturates Sc reen Negative ng/mL (N egative) 01/05/24 19:00 Ur Phencyclidine S crn Negative ng/mL (N egative) 01/05/24 19:00 Ur Amphetamines Sc reen Positive ng/mL (N egative) H 01/05/24 19:00 U Benzodiazepines Scrn Negative ng/mL (N egative) 01/05/24 19:00 Urine Cocaine Scre en Negative ng/mL (N egative) 01/05/24 19:00 U Marijuana (THC) Screen Positive ng/mL (N egative) H 01/05/24 19:00 Ethyl Alcohol < 10 mg/dL (0-10) 01/04/24 21:18 Vitals: Last Vital Signs Temp 97.1 F L 01/10/24 19:40 Pulse 122 H 01/10/24 19:40 Resp 18 01/10/24 19:40 BP 108/57 01/10/24 19:40 Pulse Ox 96 01/10/24 19:40 O2 Del Method Room Air 01/10/24 19:40 Discharge Plan Discharge Patient Disposition: Home Condition: Stable Prescriptions: New trazodone 50 mg Tablet 50 mg PO BEDTIME PRN (Reason: Sleep) 30 Days Qty: 30 1RF quetiapine 100 mg Tablet 100 mg PO BEDTIME PRN (Reason: Sleep) 30 Days Qty: 30 1RF olanzapine 5 mg Tablet,Disintegrating 5 mg PO DAILY PRN (Reason: Agitation/Psychosis) 30 Days Qty: 30 1RF Discharge Orders: Discharge Order (Routine); Ordered 01/11/24 Ordered By: Robert Geiger Referrals: [facility] [Other] - 01/15/24 9:00 am (Be at the [facility] service at 9:00 am with your mother. ) Romulo Main MD [Primary Care Provider] - Discharge Diet: Regular Discharge Activity: Resume usual activity Patient Instructions: Methamphetamine Use Disorder (DC), Polysubstance Use Disorder (DC), Opioid Safety Discharge Attestations [facility] Time Spent in Discharge Care*: less than 30 min Specific Discharge Activities: Specific discharge activities: educating patient, discussing with case work aide/social workers/dc planners, documenting/o ther paperwork and evaluating patient/reviewing data Coding Level of Care Code Acute Code for Chg Fwd Diagnoses Cannabis abuse F12.10 Methamphetamine use disorder, severe F15.20 Unspecified psychosis F29
[2024-01-11 12:29] VITALS: BP 108/57; PULSE 122; RESP 18; TEMP 36.2; O2SAT 96
== END 2024-01-11 13:40 | disposition home or self-care (01) | DRG 885 ==
LOC: ER 21:14 → NP 21:18
PROVIDERS: Admitting Provider Psychiatry & Neurology Psychiatry; Emergency Provider Emergency Medicine; PCP Family Medicine; Visit Provider Psychiatry & Neurology Psychiatry
DX: F29 Unspecified psychosis not due to a substance or known physiological condition (principal); F15.90 Other stimulant use, unspecified, uncomplicated; F12.10 Cannabis abuse, uncomplicated; R45.850 Homicidal ideations
CPT/HCPCS: 36415; 80053; 80306; 80307; 85025; 96372; 97150; 97165; 99285; J1200; J1630; J2060

== ENCOUNTER 2024-03-06 10:00 | Inpatient (IN) | payer MEDICAID, SELFPAY ==
[2024-03-06 10:06] VITALS: BP 130/79; PULSE 79; TEMP 36.8; O2SAT 96; BMI 23.6
--- NOTE | 2024-03-06 10:11 | ED.C_ITS ---
HPI - Psych 2 General: Chief Complaint: Psychiatric Symptoms Stated Complaint: SI Time Seen by Provider: 03/06/24 10:05 Source: patient Mode of arrival: ambulatory Limitations: no limitations History of Present Illness: Patient is a 23-year-old male presents to ED today with complaint of severe anxiety as well as worsening depression and vague suicidal ideations. Patient states he is not on any medications. He was admitted to [facility] back in December for similar symptoms. Patient states he has no specific suicidal plan and does not directly admit to current active suicidal ideations but states I know I am headed in that direction . He reports a suicide attempt 3 years ago. MD complaint: suicidal ideation, feels depressed and other (anxiety) Onset (ago): day(s) Duration: constant History of same: Yes Relieving factors: none Exacerbating factors: none Associated psychiatric symptoms: depression and suicidal ideation Associated symptoms: Reports depression and suicidal ideation; Deny auditory hallucinations, visual hallucinations or homicidal ideation Treatments prior to arrival: none Review of Systems 2 Const: Denies: fever(s) or chills Card: Denies: chest pain, palpitations, lightheadedness or syncope Resp: Denies: dyspnea GI: Denies: abdominal pain, nausea, vomiting or diarrhea Skin/Breast: Denies: rash Neuro: Denies: headache(s) Psych: Reports: anxiety, depression, hopelessness, loss of interest and suicidal ideation; Denies: visual hallucinations, auditory hallucinations or homicidal ideation PFS ED 2 PFSH: Medical History Major depressive disorder Methamphetamine abuse Fentanyl adverse reaction Patient denies any intent to poison himself. He denies suicidal or homicidal ideation, plan or intent. He is not depressed. Extensive education was undertaken regarding the severe risk of fentanyl. He understood and indicated he was going to avoid this friend who is giving him fentanyl. Physical Exam 2 Const: COMMON NORMALS: no acute distress, patient oriented x3, alert and well nourished GENERAL APPEARANCE: cooperative and well kempt Resp: COMMON NORMALS: normal respiratory effort and clear to auscultation bilaterally AUSCULTATION: clear to auscultation bilaterally Cardio: COMMON NORMALS: regular rate and regular rhythm RATE: regular rate RHYTHM: regular rhythm Neuro: COMMON NORMALS: patient oriented x3 SENSORIUM/ORIENTATION: Yes alert Psych: COMMON NORMALS: mental status grossly normal, Normal thought process present, cooperative, normal affect, speech normal and activity/motor behavior normal APPEARANCE: Yes grossly normal and Yes well kempt ATTITUDE: Yes calm ACTIVITY/MOTOR BEHAVIOR: Yes appropriate eye contact, No psychomotor agitation and Yes fidgeting SPEECH: Yes normal speech MOOD & AFFECT: Yes euthymic mood THOUGHT PROCESS: Normal thought process present THOUGHT CONTENT: Yes Normal thought content present ATTENTION/CONCENTRATION: Yes attention grossly intact and Yes concentration grossly intact M FAMILIA/COGNITION: Yes memory grossly intact and Yes cognition grossly intact I NSIGHT: Good insight present (Psych) JUDGEMENT: Good judgement present (Psych) Course 2 Consultations: Consultation #1: Dr. Geiger-accepts patient to [facility] Vital Signs: Vital signs: Vital Signs Temperature 98.2 F 03/06/24 10:06 Pulse Rate 79 03/06/24 10:06 Blood Pressure 130/79 03/06/24 10:06 Pulse Oximetry 96 03/06/24 10:06 Oxygen Delivery Me thod Room Air 03/06/24 10:06 MDM - Psych Medical Decision Making Patient will be an admit to [facility] for treatment/evaluation of his anxiety and worsening depression. He is voluntary at this time. Medical Records I reviewed the patient's medical records. Lab Data I reviewed the patient's lab results. 03/06/24 10:16 03/06/24 10:16 Laboratory Results WBC 5.60 10^3/uL (3.29-11.43) 03/06/24 10:16 RBC 5.12 10^6/uL (3.85-5.65) 03/06/24 10:16 Hgb 15.40 g/dL (11.27-16.99) 03/06/24 10:16 Hct 46.5 % (37-53) 03/06/24 10:16 MCV 90.8 fl (82-101) 03/06/24 10:16 MCH 30.1 pg (27-33) 03/06/24 10:16 MCHC 33.1 g/dL (30-55) 03/06/24 10:16 RDW 11.9 % (12.1-15.1) L 03/06/24 10:16 Plt Count 315 10^3/cmm (157-399) 03/06/24 10:16 MPV 10.0 fL (7.4-10.4) 03/06/24 10:16 Neut % (Auto) 59.1 % 03/06/24 10:16 Lymph % (Auto) 27.5 % 03/06/24 10:16 Mcculloch % (Auto) 9.8 % 03/06/24 10:16 Eos % (Auto) 2.7 % 03/06/24 10:16 Baso % (Auto) 0.7 % 03/06/24 10:16 Neut # (Auto) 3.31 10^3/uL (1.8-7.7) 03/06/24 10:16 Lymph # (Auto) 1.5 10^3/uL (0.8-4.8) 03/06/24 10:16 Mcculloch # (Auto) 0.6 10^3/uL (0.2-0.9) 03/06/24 10:16 Eos # (Auto) 0.2 10^3/uL (0.0-0.8) 03/06/24 10:16 Baso # (Auto) 0.0 10^3/uL (0.0-0.1) 03/06/24 10:16 Nucleated RBC % (auto) 0 % 03/06/24 10:16 Nucleated RBCs # 0.0 /100WBC 03/06/24 10:16 Sodium 136 mmol/L (136-145) 03/06/24 10:16 Potassium 4.0 mmol/L (3.5-5.1) 03/06/24 10:16 Chloride 101 mmol/L (98-107) 03/06/24 10:16 Carbon Dioxide 24 mmol/L (22-29) 03/06/24 10:16 Anion Gap 15.0 (5-19) 03/06/24 10:16 BUN 12 mg/dL (6-20) 03/06/24 10:16 Creatinine 0.8 mg/dL (0.7-1.2) 03/06/24 10:16 GFR Calculation 120.9 mL/min (90-130) 03/06/24 10:16 Glucose 113 mg/dL (65-115) 03/06/24 10:16 Calculated Osmolality 283 mOsm/kg (285-295) L 03/06/24 10:16 Calcium 9.0 mg/dL (8.5-10.5) 03/06/24 10:16 Total Bilirubin 0.3 mg/dL (0.15-1.2) 03/06/24 10:16 AST 21 U/L (0-40) 03/06/24 10:16 ALT 39 U/L (0-41) 03/06/24 10:16 Alkaline Phosphatase 55 U/L (40-130) 03/06/24 10:16 Total Protein 7.6 g/dL (6.6-8.7) 03/06/24 10:16 Albumin 4.6 g/dL (3.5-5.2) 03/06/24 10:16 Globulin 3.0 g/dL (1.3-4.6) 03/06/24 10:16 Salicylates < 0.3 mg/dL (3-10) L 03/06/24 10:16 Acetaminophen < 5.0 ug/mL (10-30) L 03/06/24 10:16 Ethyl Alcohol < 10 mg/dL (0-10) 03/06/24 10:16 No radiology studies performed this visit Discharge Plan Discharge Patient Disposition: Admitted As Inpatient Clinical Impression: Anxiety, Depression Condition: Stable Prescriptions: No Action trazodone 50 mg Tablet 50 mg PO BEDTIME PRN (Reason: Sleep) 30 Days Qty: 30 1RF quetiapine 100 mg Tablet 100 mg PO BEDTIME PRN (Reason: Sleep) 30 Days Qty: 30 1RF olanzapine 5 mg Tablet,Disintegrating 5 mg PO DAILY PRN (Reason: Agitation/Psychosis) 30 Days Qty: 30 1RF Referrals: Romulo Main MD [Primary Care Provider] - Coding Level of Care Code ED [employer] Coordinator for Taya Major
[2024-03-06 10:29] LABS: Basophils % 0.7 %; Eosinophils # 0.2 10^3/uL (0.0-0.8); Eosinophils % 2.7 %; Hematocrit 46.5 % (37-53); Lymphocytes # 1.5 10^3/uL (0.8-4.8); Lymphocytes % 27.5 %; Mean Corpuscular HGB Conc 33.1 g/dL (30-55); Mean Corpuscular Hemoglobin 30.1 pg (27-33); Mean Corpuscular Volume 90.8 fl (82-101); Monocytes # 0.6 10^3/uL (0.2-0.9); Monocytes % 9.8 %; Neutrophils # 3.31 10^3/uL (1.8-7.7); Neutrophils % 59.1 %; Nucleated Red Blood Cells % 0 %; Platelet Count 315 10^3/cmm (157-399); Red Blood Count 5.12 10^6/uL (3.85-5.65); Red Cell Distribution Width 11.9 % (12.1-15.1)
[2024-03-06 10:44] LABS: Alanine Aminotransferase 39 U/L (0-41); Albumin Level 4.6 g/dL (3.5-5.2); Alkaline Phosphatase 55 U/L (40-130); Aspartate Amino Transferase 21 U/L (0-40); Blood Urea Nitrogen 12 mg/dL (6-20); Carbon Dioxide 24 mmol/L (22-29); Chloride 101 mmol/L (98-107); Creatinine Clr Calc Pharmacy 155.3724; Glomerular Filtration Rate 120.9 mL/min (90-130); Glucose 113 mg/dL (65-115); Osmolality Calculated 283 mOsm/kg (285-295); Sodium 136 mmol/L (136-145); Total Bilirubin 0.3 mg/dL (0.15-1.2); Total Protein 7.6 g/dL (6.6-8.7)
--- NOTE | 2024-03-06 10:45 | PC.PHAR ---
PT STATES ALL MEDS ARE NEEDED AND DOES NOT REMEMBER WHEN LAST TAKEN.
[2024-03-06 10:56] LABS: Acetaminophen < 5.0 ug/mL (10-30); Alcohol Level < 10 mg/dL (0-10); Salicylate < 0.3 mg/dL (3-10)
[2024-03-06 12:09] VITALS: BP 132/68; PULSE 98; RESP 20; TEMP 36.6; O2SAT 98
[2024-03-06 12:13] LABS: Amphetamines Screen Urine Negative (Negative); Barbiturates Screen Urine Negative (Negative); Benzodiazepines Screen Urine Negative (Negative); Cocaine Screen Urine Negative (Negative); Opiate Screen Urine Negative (Negative); PCP Screen Urine Negative (Negative); THC Screen Urine Positive (Negative)
--- NOTE | 2024-03-06 13:13 | PC.ADMIT ---
[id number] Admission Note: The patient,Vishal Mckinley,23 y/o, was given written information regarding hospital policies, unit procedures and contact persons. Patient's smoking status: . Vital Signs - 8 hr 03/06/24 10:06 03/06/24 12:57 Temperature 98.2 F Pulse Rate 79 Blood Pressure 130/79 Pulse Oximetry 96 Oxygen Delivery Method Room Air Room Air ADMITTED VIA WHEELCHAIR AND ER STAFF AT 1203 PM. PT IS VOLUNTARY AT TIME OF ADMISSION. PT STATES A FEW DAYS AGO I GOT REALLY STRESSED OUT AND NOW I'M SUPER ANXIOUS. PT REPORTS HE DOES NOT TAKE ANY MEDICATIONS ON A ROUTINE BASIS BUT WOULD LIKE TO GET BACK ON MY XANAX. PT REPORTS HE WAS IN THE NPU ABOUT 2-4 MONTHS AGO I REALLY CAN'T REMEMBER. PT DENIES PAIN. ER STAFF REPORTS PT CLAIMED TO HAVE SUICIDAL THOUGHTS BUT PT DENIES ANY SUICIDAL IDEATION UPON ADMISSION. PT DENIES HI AND AVH AT THIS TIME. PT STATES HE NEVER HAVE VIOLENT BEHAVIORS. PT STATES HE HAS A BED A TURNING LEAF NEXT TUESDAY FOR ALCOHOL AND WEED. PT REPORTS HE HAS BEEN USING ALCOHOL AND MARIJAUNA SINCE HE WAS 15 AND WANTS TO GET OFF OF IT. PT STATES HE DID GO TO REHAB IN [place] AND COMPLETED THE PROGRAM WHICH WAS SUCCESSFUL FOR 1-2 YEARS PER PT STATEMENT. PT DOES REPORT HE HAD A SUICIDAL ATTEMPT TO OVERDOSE ON FENTANYL 3 YEARS AGO. PT CONTINUES TO DENY SI OR ANY PLAN TO HARM HIMSELF AT THIS TIME. PT WAS GIVEN A LUNCH TRAY. SKIN ASSESSMENT REVEALS SMALL SCRATCH TO LEFT ELBOW. PT WAS DRESSED OUT AND GIVEN SCRUBS. ORIENTATED TO NPU. ALL QUESTIONS WERE ANSWERED AND SUPPORT WAS VOICED.
[2024-03-06 14:00] VITALS: BP 118/75; PULSE 74; RESP 20; TEMP 36.4; O2SAT 97
[2024-03-06 20:17] VITALS: BP 112/62; PULSE 63; RESP 18; TEMP 36.9; O2SAT 97
[2024-03-07 06:00] VITALS: BP 101/59; PULSE 72; RESP 18; TEMP 36.6; O2SAT 99
--- NOTE | 2024-03-07 07:29 | W.PM.NPUH&PS ---
Providers/Chief Complaint Admitting Physician: Robert Geiger MD Primary Care Provider: Ke[facility] Main Chief Complaint: SI HPI NPU History of Present Illness Vishal Mckinley is a 23 year old male who presented to the emergency department with the following report: Chief Complaint: Psychiatric Symptoms Stated Complaint: SI Time Seen by Provider: 03/06/24 10:05 Source: patient Mode of arrival: ambulatory Limitations: no limitations History of Present Illness: Patient is a 23-year-old male presents to ED today with complaint of severe anxiety as well as worsening depression and vague suicidal ideations. Patient states he is not on any medications. He was admitted to NPU back in December for similar symptoms. Patient states he has no specific suicidal plan and does not directly admit to current active suicidal ideations but states I know I am headed in that direction . He reports a suicide attempt 3 years ago. MD complaint: suicidal ideation, feels depressed and other (anxiety) Onset (ago): day(s) Duration: constant History of same: Yes Relieving factors: none Exacerbating factors: none Associated psychiatric symptoms: depression and suicidal ideation Associated symptoms: Reports depression and suicidal ideation; Deny auditory hallucinations, visual hallucinations or homicidal ideation Treatments prior to arrival: none. He was admitted to the neuropsychiatric unit for definitive treatment of those issues. Patient is known to this automobile and property underwriter through inpatient services most recently December of this year and similar circumstances trying to get his addiction under control and get connected with treatment. An excerpt of his discharge summary from that stay is included below for historical context and the fact there have been no substantive changes since then. He presents today reporting: Chief complaint The patient expressed concerns about his mental health, specifically his struggle with negative thoughts and stress. He mentioned that these thoughts and stress often lead to actions he regrets. He also mentioned feeling overwhelmed and having thoughts of violence towards others. History of the present complaint The patient, born on 2000, reported feeling stressed and overwhelmed, which led to his decision to seek help. He expressed that he has been having a lot of thoughts, which he did not elaborate on, but indicated that they were causing him distress. He mentioned that he had been staying with his grandmother, which he found to be a stressful experience. The patient had previously been in a program at [facility], but left due to feeling overwhelmed and stressed. He regretted this decision and sought to get a new bed day at the same facility. He expressed regret for leaving the program and wished he had developed more coping skills. He mentioned that he had been at [facility] for about three weeks and had been gone for about four or five days. The patient also mentioned that he had been feeling a lot of stress and anxiety, which led to negative thoughts and actions. He expressed a desire to keep these thoughts from spiraling downhill. He also mentioned an incident where he felt anger towards another individual, but did not act on this anger. In terms of medication, the patient reported that he had been prescribed PRN in the past, but was not currently taking any medication. He expressed a reluctance to take the wrong medication and mentioned that he had previously been prescribed prazolam for anxiety, but after reading up on it, he found out it was also used for depression. He expressed a desire to read about any potential medication before taking it. The patient did not report any current thoughts of self-harm or suicide. He denied feeling paranoid or hearing voices. He expressed a desire to finish his treatment and seemed open to the idea of taking medication to help manage his symptoms. Mental health history The patient has a history of mental health issues, including stress and negative thoughts. He has previously been in a program for treatment but left due to feeling overwhelmed. He expressed regret over leaving the program and has sought a new treatment program. Social history The patient mentioned staying with his grandmother, which he found stressful. He also mentioned a previous stay at [facility] and a plan to go to [facility]. He did not mention any exercise, alcohol or tobacco consumption, diet, or work situation. Per his 01/11/2024 [facility] inpatient psychiatric discharge summary: Discharge Diagnosis (1) Cannabis abuse: Status: Acute (2) Methamphetamine use disorder, severe: Status: Acute (3) Unspecified psychosis: Status: Acute Reason for Visit Reason for Visit: anxiety, depression Brief History: History of Present Illness Vishal Mckinley is a 23 year old male who presented to the emergency department with complaints of having increased depression and anxiety. The patient was admitted voluntarily for further evaluation and treatment to the neuropsychiatric unit. The patient had previously been hospitalized multiple times on the neuropsychiatric unit most recently in June 2023. The patient had reported that he has been planning on going to [place] [id number] to learn more about God. The patient reports that he has been bothered most recently by a person that he describes having been on his mind for several years and states that he plans on harming this person if he does not get help by going to [place] [id number]. The patient had reported that this person was like a friend on his shoulder but stated that he did not trust this person. The patient was a poor historian and reported that he was getting agitated . He had reported that he was not taking any medications. Patient had refused any urine drug screens at this time. Previous records had shown evidence of the patient having an extended history of stimulant abuse beginning as early as his teenage years with previous medications including zyprexa and Celexa having been prescribed in his last hospitalization. He reports that he currently lives in [place]. D/C Summary from NPU on 07/03/23 Reason for Visit anxiety Brief History: History of Present Illness Vishal Mckinley is a 22 year old male who presented to the emergency department with the following report: Chief Complaint: Anxiety Stated Complaint: anxiety Time Seen by Provider: 06/30/23 20:02 History of Present Illness: 22-year-old male with a history of mood disorder and drug abuse presents emergency room with for complaint of anxiety and depression for the past few days. Patient denies any suicidal homicidal ideation. No hallucination. Patient reviews that he last used meth amphetamine few days ago. Denies any shortness of breath, chest pain, fever or chills. Associated symptoms: Deny chills, fever(s) or headache(s). He was admitted to the neuropsychiatric unit for definitive treatment of those issues. He presents today reporting that he does not remember this automobile and property underwriter from previous hospitalizations. He reports that he had been doing well overall and had about a year of sobriety. He reports that there was some acquaintances/friends that he recently was interacting with that got him off track and he does report that he relapsed and that has caused significant difficulties. He denies being on any medication and reports that in general things are okay. We reviewed his 2020 short stay summary as he was struggling with withdrawal and not the best historian. He endorsed that it was an accurate depiction of his general history. He reports however that recently he has been staying sober by working and staying really busy and not hanging around people from the past. He is not really clear what the trigger was that got him off his positive run. But he said that things had really gotten bad which led to him coming to the hospital. He reports that it was methamphetamine again. He endorsed wanting to work with the treatment team to get connected with sober living treatment. He was somewhat unsure whether he wanted inpatient or outpatient but endorsed knowing he needs to get back on a recovery process. We agree we will work with him over the weekend and see how he is doing at the beginning of the week. An excerpt of his 2020 [facility] inpatient short stay summary is included below for context. Per his 01/19/2021 [facility] inpatient short stay summary: History of Present Illness Vishal Mckinley is a 20 year old male who presented to the emergency department with the following report: Chief Complaint: Overdose Stated Complaint: Overdose/SI Time Seen by Provider: 01/18/21 19:27 History of Present Illness: HPI Narrative: 20-year-old male presents after an overdose. I took a bunch of fentanyl, and an 8 ball of meth, and almost an 8 ball of cocaine, and 3 green Xanax, and I swallowed all of it . When asked why he says I let my depression get to me. My sister and her boyfriend were fighting all day about drugs. He is a bit of a poor historian. He does have a history of psychiatric problems. He states that he came here for help, because his heart was racing and hurting. 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 He is admitted to the neuropsychiatric unit for definitive treatment of those issues. Vishal is known to this automobile and property underwriter with his last inpatient stay ending on 08/18/2020. He has struggled with addiction especially methamphetamine for some time and has been resistant at times and ambivalent at others to treatment especially aggressive inpatient treatment. He presents today on a voluntary commitment reporting a desire to get into treatment and that he had reached out to a facility and was interested in the possibility of inpatient at that facility. He reports that he has had some clean time since he last saw this automobile and property underwriter however he reports that he has relapsed and he is really struggling again. He was noted to have some tweaking behaviors and reports that his main goal of coming to the inpatient facility here was to avoid continued use and get himself together so he can get to the rehab. We discussed the possibility of him staying in getting more stable but he endorses that he has been taking his medication and doing fine and that he really wants to just get to active treatment. We discussed that he is a voluntary patient and that we would contact the facility and make sure that in fact he does have this circumstance set up however we also agreed that the only way we would feel comfortable with the process was if we deliver him directly from our facility to the rehab which he understood and agreed to proceed as is documented in this note. He denies any substantive changes since he was seen last in excess of his last evaluation is included below for context. He was clear and his desired outcome but was not very interested in answering a lot of questions and even discussed AMA discharge because he reports he gets by to drive home therefore he did not help. Per his 08/13/2020 [facility] inpatient psychiatric valuation: History of Present Illness Vishal Mckinley is a 19 year old male admitted to the psychiatric unit on a 96-hour involuntary commitment after stating staff that he was considering ending his own life. HPI Narrative: 19-year-old male states he has been having suicidal thoughts today with a plan to kill himself by overdosing. Patient is voluntarily wanting to get help. He states that he has been using drugs lately and used IV methamphetamine today. He denies any worsening or improving factors. Denies previous suicide attempts. On interview today, he states I just told him that because I knew I had to say that to get in here. Patient states he was under a lot of stress and did not know where to go. He was only discharged from this unit 7 days ago. Since then he has been sleeping in a bed at his cousin's apartment. He has been using a methamphetamine on a regular but not daily basis. He literally has nothing else to do. He has been trying to get into a rehabilitation program. He feels that a rehabilitation program will solve many of his psychosocial issues. He believes that if he completes a rehabilitation program, he will either be allowed to return to his mother's home or he will be able to go live with an uncle and get a job with him. Otherwise he has a really no plan of how to manage his life. He engages in no enjoyable activities. He feels hopeless. He feels worthless. He is tearful and sad on a daily basis except when he uses drugs. He says that he tried to commit suicide once by fentanyl overdose but has not tried since then. However he sometimes thinks about suicide. He has no intent or plan at this time. He denies the presence of auditory or visual hallucinations. There is no indication of manic symptoms or history. It is unclear to what degree his substance use may be amplifying his depressive symptoms. They gave me some kind of medication for depression here but it did not help so I stopped taking it. He cannot name or recall the name of the medication. His complete psychiatric history will not be reviewed here given that this is his fifth admission in 6 months, fourth admission in 9 weeks and second admission in 8 days. His history has been thoroughly reviewed and I refer you to those documents. It is unclear that he has ever had a significant trial of medication for depression. There is no record of him participating in outpatient treatment following discharge. He claims to have achieved a GED but given his a level of problem solving skills exhibited during this interview, it should not be assumed that that claim is accurate. There have been multiple recommendations for him to go to rehabilitation programs and he is in generally cooperative with the assessment/plan: This is a 20-year-old white male known to this automobile and property underwriter through multiple past encounters who presents to the neuropsychiatric unit with active use and addiction specifically with methamphetamine but with a rehab bed identified on a voluntary commitment with desire for assistance to get to that rehab bed. 1. Continue current medication. 2. Continue every 15 minute checks for safety. 3. Encourage individual, group and milieu therapies. 4. Encourage sober living treatment after discharge at the highest level of care to which he is willing to commit. 5. Patient would benefit from care in the neuropsychiatric unit but ultimately the goal would be to get him to an inpatient bed which is available right now. He voluntary patient was arranged this inpatient bed and so we will support his decision.. Hospital Course He acclimated to the individual, group and milieu therapies provided. He presented having relapsed and wanting to get restarted on his medication and wanting to restart his medications. We began Zyprexa 5 mg, Seroquel 100 mg and trazodone as well. He worked with the social work team for appropriate discharge appointments and endorsed a plan to follow-up with Alexys Garcia as well as his outpatient care and take his medications to ensure his success in sobriety. He had modest improvement during the stay and he was able to contract for safety outside the hospital prior to discharge. During the hospitalization, patient had routine laboratory studies which were within normal limits except for few outliers. Additionally there was a general medical evaluation which was also within normal limits and revealed no new acute processes. Discharge Summary: At the time of discharge, he denied psychosis or lethality. Mood and anxiety were well managed. Patient endorsed a plan to avoid all drugs of abuse and follow-up with the aftercare recommendations of the treatment team. Patient was evaluated and deemed to be absent credible lethality, and had achieved significant benefit from an inpatient hospitalization, so was discharged Meds NPU Home Medications Medication Instructions Recorded Confirmed Last Taken Type olanzapine 5 mg disintegrating 5 mg PO DAILY PRN 01/11/24 03/06/24 Unknown Rx tablet Agitation/Psychosis 30 days #30 tabs quetiapine 100 mg tablet 100 mg PO BEDTIME PRN Sleep 30 01/11/24 03/06/24 Unknown Rx days #30 tabs trazodone 50 mg tablet 50 mg PO BEDTIME PRN Sleep 30 days 01/11/24 03/06/24 Unknown Rx #30 tabs Allergies Allergy/AdvReac Type Severity Reaction Status Date / Time No Known Allergies Allergy Verified 03/06/24 10:13 [facility] NPU PFSH: Medical History Major depressive disorder Methamphetamine abuse Fentanyl adverse reaction Patient denies any intent to poison himself. He denies suicidal or homicidal ideation, plan or intent. He is not depressed. Extensive education was undertaken regarding the severe risk of fentanyl. He understood and indicated he was going to avoid this friend who is giving him fentanyl. Mental Status Exam MSE Comments: This is a well-nourished well-developed white adolescent male in hospital scrubs with adequate grooming and fleeting eye contact who appeared very guarded. No abnormal movements except for mild psychomotor agitation. He was mostly cooperative with exam in mild to moderate distress. Speech was slightly increased in rate and normal volume. Mood was described as anxious and overwhelmed. Affect was irritable and mood congruent. Thought process was linear . Thought content: He endorsed occasional aggressive thoughts/homicidal ideation towards people that annoy him but denied suicidal ideation, there were no delusions reported or noted, he denied any auditory or visual hallucinations. Attention and concentration were intact and memory was somewhat reliable, but none were formally tested. He is alert and oriented x3. Insight was impaired and judgment is poor and impulse control is impaired. Vitals/I&O/Wt Last Vital Signs Temp 97.9 F 03/07/24 06:00 Pulse 72 03/07/24 06:00 Resp 18 03/07/24 06:00 BP 101/59 03/07/24 06:00 Pulse Ox 99 03/07/24 06:00 O2 Del Method Room Air 03/06/24 12:57 Weight last 48 hrs Weight 76.657 kg Data NPU 03/06/24 10:16 03/06/24 10:16 A&P Assessment and plan (1) Cannabis abuse: (2) Methamphetamine use disorder, severe: (3) Unspecified psychosis: Plan This is a 23-year-old white male with a long history of addiction with significant methamphetamine use disorder history who presents generally with psychosis with homicidal ideation and depression. The patient is struggling with stress and negative thoughts, which he acknowledges lead to actions he later regrets. He has sought help in the past but left the program due to feeling overwhelmed. He is currently seeking a new treatment program. 1. Explore starting medication that may have helped in the past to assist him in mood regulation. 2. Continue every 15 minute checks for safety. 3. Encourage individual, group and milieu therapy. 4. Encourage sober living treatment after discharge at the highest level of care to which he is willing to commit. He is scheduled to go to [facility] we will try to facilitate that happening hopefully sooner than scheduled. Involuntary Hold Information 96 Hour Hold: 96 Hour Involuntary Admission: No Attestations NPU Medical Necessity Statement*: Inpatient hospitalization is medically necessary and the clinically appropriate intervention at this time. We will initiate and monitor and make changes to medications as indicated. He will be hospital for over 2 midnights. Likely length of stay 5-7 days. Coding Level of Care Code Acute Code for [facility] Diagnoses Cannabis abuse F12.10 Methamphetamine use disorder, severe F15.20 Unspecified psychosis F29
[2024-03-07 14:00] VITALS: BP 112/68; PULSE 58; RESP 16; TEMP 36.8; O2SAT 97
[2024-03-07 20:49] VITALS: BP 124/68; PULSE 70; RESP 17; TEMP 36.9; O2SAT 97
[2024-03-08 06:00] VITALS: BP 104/67; PULSE 63; RESP 14; TEMP 36.5; O2SAT 97
[2024-03-08 13:38] VITALS: BP 104/62; PULSE 75; RESP 16; TEMP 36.6; O2SAT 97
--- NOTE | 2024-03-08 14:27 | W.PM.NPUPNS ---
Subjective NPU Subjective: Patient presented today reporting that he is doing okay in general but is really helpful to find a place to go for rehab. He is working with the social workers to figure out the best option. He reports that he continues to struggle with trying to deal with his low frustration tolerance but that he is doing a good job and did not have any challenging episodes today. He denied any side effects to any medication. Mental Status Exam MSE Comments: This is a well-nourished well-developed white adolescent male in hospital scrubs with adequate grooming and fleeting eye contact who appeared very guarded. No abnormal movements except for mild psychomotor agitation. He was mostly cooperative with exam in mild to moderate distress. Speech was slightly increased in rate and normal volume. Mood was described as anxious and overwhelmed. Affect was irritable and mood congruent. Thought process was linear . Thought content: He endorsed occasional aggressive thoughts/homicidal ideation towards people that annoy him but denied suicidal ideation, there were no delusions reported or noted, he denied any auditory or visual hallucinations. Attention and concentration were intact and memory was somewhat reliable, but none were formally tested. He is alert and oriented x3. Insight was impaired and judgment is poor and impulse control is impaired. Vitals/I&O/Wt Last Vital Signs Temp 98 F 03/08/24 13:38 Pulse 75 03/08/24 13:38 Resp 16 03/08/24 13:38 BP 104/62 03/08/24 13:38 Pulse Ox 97 03/08/24 13:38 O2 Del Method Room Air 03/08/24 13:38 Data NPU 03/06/24 10:16 03/06/24 10:16 A&P Assessment and plan (1) Cannabis abuse: (2) Methamphetamine use disorder, severe: (3) Unspecified psychosis: Plan This is a 23-year-old white male with a long history of addiction with significant methamphetamine use disorder history who presents generally with psychosis with homicidal ideation and depression. The patient is struggling with stress and negative thoughts, which he acknowledges lead to actions he later regrets. He has sought help in the past but left the program due to feeling overwhelmed. He is currently seeking a new treatment program. 1. Explore starting medication that may have helped in the past to assist him in mood regulation. 2. Continue every 15 minute checks for safety. 3. Encourage individual, group and milieu therapy. 4. Encourage sober living treatment after discharge at the highest level of care to which he is willing to commit. He is scheduled to go to [facility], however this was for outpatient. We have agreed that there is a need for inpatient and he is working with the social work team for options. Involuntary Hold Information 96 Hour Hold: 96 Hour Involuntary Admission: No Attestations NPU Medical Necessity Statement*: Inpatient hospitalization is medically necessary and the clinically appropriate intervention at this time. We will initiate and monitor and make changes to medications as indicated. Likely length of stay 5-7 days. Coding Level of Care Code Acute Code for g Fwd Diagnoses Cannabis abuse F12.10 Methamphetamine use disorder, severe F15.20 Unspecified psychosis F29
[2024-03-08 19:43] VITALS: BP 114/64; PULSE 61; RESP 20; TEMP 36.8; O2SAT 97
[2024-03-09 06:00] VITALS: BP 106/68; PULSE 65; RESP 18; TEMP 36.5; O2SAT 98
--- NOTE | 2024-03-09 13:45 | W.PM.NPUPNS ---
Subjective NPU Subjective: Patient presented today reporting that he is doing okay. He reports that he is continue to work with the social work team for possibilities for sober living treatment. He continues to deny an active need for any specific medication. We discussed the importance of him being honest about his symptoms so we can make sure that he is supported from a mental health standpoint when he does go to sober living. We discussed the fact that there have been nothing obtained at this point and that that would mean that he would be here through Tuesday most likely. Mental Status Exam MSE Comments: This is a well-nourished well-developed white adolescent male in hospital scrubs with adequate grooming and fleeting eye contact who appeared very guarded. No abnormal movements except for mild psychomotor agitation. He was mostly cooperative with exam in mild to moderate distress. Speech was slightly increased in rate and normal volume. Mood was described as anxious and overwhelmed. Affect was irritable and mood congruent. Thought process was linear . Thought content: He endorsed occasional aggressive thoughts/homicidal ideation towards people that annoy him but denied suicidal ideation, there were no delusions reported or noted, he denied any auditory or visual hallucinations. Attention and concentration were intact and memory was somewhat reliable, but none were formally tested. He is alert and oriented x3. Insight was impaired and judgment is poor and impulse control is impaired. Vitals/I&O/Wt Last Vital Signs Temp 97.7 F 03/09/24 06:00 Pulse 65 03/09/24 06:00 Resp 18 03/09/24 06:00 BP 106/68 03/09/24 06:00 Pulse Ox 98 03/09/24 06:00 O2 Del Method Room Air 03/09/24 06:00 Data NPU 03/06/24 10:16 03/06/24 10:16 A&P Assessment and plan (1) Cannabis abuse: (2) Methamphetamine use disorder, severe: (3) Unspecified psychosis: Plan This is a 23-year-old white male with a long history of addiction with significant methamphetamine use disorder history who presents generally with psychosis with homicidal ideation and depression. The patient is struggling with stress and negative thoughts, which he acknowledges lead to actions he later regrets. He has sought help in the past but left the program due to feeling overwhelmed. He is currently seeking a new treatment program. 1. Explore starting medication that may have helped in the past to assist him in mood regulation. 2. Continue every 15 minute checks for safety. 3. Encourage individual, group and milieu therapy. 4. Encourage sober living treatment after discharge at the highest level of care to which he is willing to commit. He is scheduled to go to [facility], however this was for outpatient. We have agreed that there is a need for inpatient and he is working with the social work team for options. Involuntary Hold Information 96 Hour Hold: 96 Hour Involuntary Admission: No Attestations NPU Medical Necessity Statement*: Inpatient hospitalization is medically necessary and the clinically appropriate intervention at this time. We will initiate and monitor and make changes to medications as indicated. Likely length of stay 4-6 days. Coding Level of Care Code Acute Code for [facility] Fw Diagnoses Cannabis abuse F12.10 Methamphetamine use disorder, severe F15.20 Unspecified psychosis F29
[2024-03-09 13:50] VITALS: BP 118/59; PULSE 63; RESP 17; TEMP 36.8; O2SAT 96
[2024-03-09 20:14] VITALS: BP 122/71; PULSE 66; RESP 18; TEMP 36.3; O2SAT 98
[2024-03-10 06:00] VITALS: BP 97/61; PULSE 67; RESP 16; TEMP 36.5; O2SAT 98
--- NOTE | 2024-03-10 10:16 | P.NPUPN_ITS ---
Subjective NPU 2 Subjective: Patient presented today reporting that he is feeling all right. He reports that he is working with the social work case manager to identify possible sober living facilities and that they had some leads when they discussed things on Tuesday. He reports that he is aware that she does not work the weekend and he will wait being able to speak with her again on Tuesday about progress. Continues to report a commitment to his recovery and hoping to go from here to a sober living facility as soon as possible. Mental Status Exam 2 MSE Comments: This is a well-nourished well-developed white adolescent male in hospital scrubs with adequate grooming and fleeting eye contact who appeared very guarded. No abnormal movements except for mild psychomotor agitation. He was mostly cooperative with exam in mild to moderate distress. Speech was slightly increased in rate and normal volume. Mood was described as anxious and overwhelmed. Affect was irritable and mood congruent. Thought process was linear . Thought content: He endorsed occasional aggressive thoughts/homicidal ideation towards people that annoy him but denied suicidal ideation, there were no delusions reported or noted, he denied any auditory or visual hallucinations. Attention and concentration were intact and memory was somewhat reliable, but none were formally tested. He is alert and oriented x3. Insight was impaired and judgment is poor and impulse control is impaired. Vitals/I&O/Wt Last Vital Signs Temp 97.7 F 03/10/24 06:00 Pulse 67 03/10/24 06:00 Resp 16 03/10/24 06:00 BP 97/61 03/10/24 06:00 Pulse Ox 98 03/10/24 06:00 O2 Del Method Room Air 03/10/24 06:00 Data NPU 03/06/24 10:16 03/06/24 10:16 A&P Assessment and plan (1) Cannabis abuse: (2) Methamphetamine use disorder, severe: (3) Unspecified psychosis: Plan This is a 23-year-old white male with a long history of addiction with significant methamphetamine use disorder history who presents generally with psychosis with homicidal ideation and depression. The patient is struggling with stress and negative thoughts, which he acknowledges lead to actions he later regrets. He has sought help in the past but left the program due to feeling overwhelmed. He is currently seeking a new treatment program. 1. Explore starting medication that may have helped in the past to assist him in mood regulation. 2. Continue every 15 minute checks for safety. 3. Encourage individual, group and milieu therapy. 4. Encourage sober living treatment after discharge at the highest level of care to which he is willing to commit. He is scheduled to go to [facility], however this was for outpatient. We have agreed that there is a need for inpatient and he is working with the social work team for options. Involuntary Hold Information 2 96 Hour Hold: 96 Hour Involuntary Admission: No Attestations NPU 2 Medical Necessity Statement*: Inpatient hospitalization is medically necessary and the clinically appropriate intervention at this time. We will initiate and monitor and make changes to medications as indicated. Likely length of stay 3-5 days. Coding Level of Care Code Acute Code for [facility] Fwd Diagnoses Cannabis abuse F12.10 Methamphetamine use disorder, severe F15.20 Unspecified psychosis F29
[2024-03-10 14:00] VITALS: BP 107/57; PULSE 68; TEMP 36.6; O2SAT 96
[2024-03-10 19:42] VITALS: BP 122/61; PULSE 63; RESP 18; TEMP 36.6; O2SAT 97
[2024-03-11 06:00] VITALS: BP 105/68; PULSE 60; RESP 17; TEMP 36.4; O2SAT 96
--- NOTE | 2024-03-11 13:43 | P.NPUPN_ITS ---
Subjective NPU 2 Subjective: Patient presented today reporting that he is feeling better today. He reports that he is looking forward to the social work team returning tomorrow and hopefully identifying a sober living facility for him to go to. Staff reports of him being more social and less guarded also seen and direct observation. Mental Status Exam 2 MSE Comments: This is a well-nourished well-developed white adolescent male in hospital scrubs with adequate grooming and improving eye contact who appeared less guarded. No abnormal movements except for mild psychomotor agitation. He was mostly cooperative with exam in mild distress. Speech was slightly increased in rate and normal volume. Mood was described as anxious and overwhelmed. Affect was irritable and mood congruent. Thought process was linear . Thought content: He endorsed occasional aggressive thoughts/homicidal ideation towards people that annoy him but denied suicidal ideation, there were no delusions reported or noted, he denied any auditory or visual hallucinations. Attention and concentration were intact and memory was somewhat reliable, but none were formally tested. He is alert and oriented x3. Insight was impaired and judgment is poor and impulse control is impaired. Vitals/I&O/Wt Last Vital Signs Temp 97.6 F 03/11/24 06:00 Pulse 60 03/11/24 06:00 Resp 17 03/11/24 06:00 BP 105/68 03/11/24 06:00 Pulse Ox 96 03/11/24 06:00 O2 Del Method Room Air 03/10/24 14:00 Weight last 48 hrs Weight 74.389 kg Data NPU 03/06/24 10:16 03/06/24 10:16 A&P Assessment and plan (1) Cannabis abuse: (2) Methamphetamine use disorder, severe: (3) Unspecified psychosis: Plan This is a 23-year-old white male with a long history of addiction with significant methamphetamine use disorder history who presents generally with psychosis with homicidal ideation and depression. The patient is struggling with stress and negative thoughts, which he acknowledges lead to actions he later regrets. He has sought help in the past but left the program due to feeling overwhelmed. He is currently seeking a new treatment program. 1. Explore starting medication that may have helped in the past to assist him in mood regulation. 2. Continue every 15 minute checks for safety. 3. Encourage individual, group and milieu therapy. 4. Encourage sober living treatment after discharge at the highest level of care to which he is willing to commit. He is scheduled to go to [facility], however this was for outpatient. We have agreed that there is a need for inpatient and he is working with the social work team for options. Involuntary Hold Information 2 96 Hour Hold: 96 Hour Involuntary Admission: No Attestations NPU 2 Medical Necessity Statement*: Inpatient hospitalization is medically necessary and the clinically appropriate intervention at this time. We will initiate and monitor and make changes to medications as indicated. Likely length of stay 2-4 days. Coding Level of Care Code Acute Code for [facility] Fwd Diagnoses Cannabis abuse F12.10 Methamphetamine use disorder, severe F15.20 Unspecified psychosis F29
[2024-03-11 14:00] VITALS: BP 102/61; PULSE 77; RESP 16; TEMP 36.9; O2SAT 97
[2024-03-11 20:07] VITALS: BP 103/56; PULSE 65; RESP 18; TEMP 36.9; O2SAT 97
[2024-03-12 06:00] VITALS: BP 102/66; PULSE 68; RESP 17; TEMP 36.4; O2SAT 99
[2024-03-12 14:00] VITALS: BP 114/68; PULSE 83; RESP 16; TEMP 36.9; O2SAT 95
[2024-03-12] MEDS: nicotine 2 mg Gum BUCCAL (17:05)
--- NOTE | 2024-03-12 17:12 | P.NPUPN_ITS ---
Subjective NPU 2 Subjective: Patient presented today reporting that he is slowly getting better from a mental health standpoint. He continues to have great worries about his sobriety and making sure he finds an appropriate sober living facility to help him continue these improvements that have occurred as he has been able to abstain from use. In part because he is on the inpatient unit. He reports continued work with the social work team to identify the earliest bed date possible. He continues to deny desire or need for standing psychotropic medications. Mental Status Exam 2 MSE Comments: This is a well-nourished well-developed white adolescent male in hospital scrubs with adequate grooming and improving eye contact who appeared less guarded. No abnormal movements except for mild psychomotor agitation. He was mostly cooperative with exam in mild distress. Speech was slightly increased in rate and normal volume. Mood was described as anxious and overwhelmed. Affect was irritable and mood congruent. Thought process was linear . Thought content: He endorsed occasional aggressive thoughts/homicidal ideation towards people that annoy him but denied suicidal ideation, there were no delusions reported or noted, he denied any auditory or visual hallucinations. Attention and concentration were intact and memory was somewhat reliable, but none were formally tested. He is alert and oriented x3. Insight was impaired and judgment is poor and impulse control is impaired. Vitals/I&O/Wt Last Vital Signs Temp 97.6 F 03/12/24 19:34 Pulse 75 03/12/24 19:34 Resp 18 03/12/24 19:34 BP 112/60 03/12/24 19:34 Pulse Ox 97 03/12/24 19:34 O2 Del Method Room Air 03/12/24 14:00 Weight last 48 hrs Weight 74.389 kg Data NPU 03/06/24 10:16 03/06/24 10:16 A&P Assessment and plan (1) Cannabis abuse: (2) Methamphetamine use disorder, severe: (3) Unspecified psychosis: Plan This is a 23-year-old white male with a long history of addiction with significant methamphetamine use disorder history who presents generally with psychosis with homicidal ideation and depression. The patient is struggling with stress and negative thoughts, which he acknowledges lead to actions he later regrets. He has sought help in the past but left the program due to feeling overwhelmed. He is currently seeking a new treatment program. 1. Explore starting medication that may have helped in the past to assist him in mood regulation. 2. Continue every 15 minute checks for safety. 3. Encourage individual, group and milieu therapy. 4. Encourage sober living treatment after discharge at the highest level of care to which he is willing to commit. He is scheduled to go to [facility], however this was for outpatient. We have agreed that there is a need for inpatient and he is working with the social work team for options. Involuntary Hold Information 2 96 Hour Hold: 96 Hour Involuntary Admission: No Attestations NPU 2 Medical Necessity Statement*: Inpatient hospitalization is medically necessary and the clinically appropriate intervention at this time. We will initiate and monitor and make changes to medications as indicated. Likely length of stay 1-4 days. Coding Level of Care Code Acute Code for [facility] Fw Diagnoses Cannabis abuse F12.10 Methamphetamine use disorder, severe F15.20 Unspecified psychosis F29
[2024-03-12 19:34] VITALS: BP 112/60; PULSE 75; RESP 18; TEMP 36.4; O2SAT 97
[2024-03-13 06:00] VITALS: BP 110/61; PULSE 64; RESP 17; TEMP 36.4; O2SAT 98
--- NOTE | 2024-03-13 09:27 | PC.NURSE ---
Patient denies avh and si/hi. 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 He says this is because he got a new roommate. Night nursing staff did report that he was not happy that he had a roommate. Patient denies any needs at this time.
[2024-03-13 13:39] VITALS: BP 117/55; PULSE 93; RESP 20; TEMP 36.8; O2SAT 97
[2024-03-13 15:09] VITALS: BP 117/55; PULSE 93; RESP 20; TEMP 36.8; O2SAT 97
--- NOTE | 2024-03-13 15:26 | P.NPUDS_ITS ---
Diagnoses at Discharge Discharge Diagnosis (1) Cannabis abuse: Status: Acute (2) Methamphetamine use disorder, severe: Status: Acute (3) Unspecified psychosis: Status: Acute Reason for Visit Reason for Visit: SI Brief History: History of Present Illness Vishal Mckinley is a 23 year old male who presented to the emergency department with the following report: Chief Complaint: Psychiatric Symptoms Stated Complaint: SI Time Seen by Provider: 03/06/24 10:05 Source: patient Mode of arrival: ambulatory Limitations: no limitations History of Present Illness: Patient is a 23-year-old male presents to ED today with complaint of severe anxiety as well as worsening depression and vague suicidal ideations. Patient states he is not on any medications. He was admitted to [facility] back in December for similar symptoms. Patient states he has no specific suicidal plan and does not directly admit to current active suicidal ideations but states I know I am headed in that direction . He reports a suicide attempt 3 years ago. MD complaint: suicidal ideation, feels depressed and other (anxiety) Onset (ago): day(s) Duration: constant History of same: Yes Relieving factors: none Exacerbating factors: none Associated psychiatric symptoms: depression and suicidal ideation Associated symptoms: Reports depression and suicidal ideation; Deny auditory hallucinations, visual hallucinations or homicidal ideation Treatments prior to arrival: none. He was admitted to the neuropsychiatric unit for definitive treatment of those issues. Patient is known to this commercial insurance underwriter through inpatient services most recently December of this year and similar circumstances trying to get his addiction under control and get connected with treatment. An excerpt of his discharge summary from that stay is included below for historical context and the fact there have been no substantive changes since then. He presents today reporting: Chief complaint The patient expressed concerns about his mental health, specifically his struggle with negative thoughts and stress. He mentioned that these thoughts and stress often lead to actions he regrets. He also mentioned feeling overwhelmed and having thoughts of violence towards others. History of the present complaint The patient, born on 2000, reported feeling stressed and overwhelmed, which led to his decision to seek help. He expressed that he has been having a lot of thoughts, which he did not elaborate on, but indicated that they were causing him distress. He mentioned that he had been staying with his grandmother, which he found to be a stressful experience. The patient had previously been in a program at [facility], but left due to feeling overwhelmed and stressed. He regretted this decision and sought to get a new bed day at the same facility. He expressed regret for leaving the program and wished he had developed more coping skills. He mentioned that he had been at [facility] for about three weeks and had been gone for about four or five days. The patient also mentioned that he had been feeling a lot of stress and anxiety, which led to negative thoughts and actions. He expressed a desire to keep these thoughts from spiraling downhill. He also mentioned an incident where he felt anger towards another individual, but did not act on this anger. In terms of medication, the patient reported that he had been prescribed PRN in the past, but was not currently taking any medication. He expressed a reluctance to take the wrong medication and mentioned that he had previously been prescribed prazolam for anxiety, but after reading up on it, he found out it was also used for depression. He expressed a desire to read about any potential medication before taking it. The patient did not report any current thoughts of self-harm or suicide. He denied feeling paranoid or hearing voices. He expressed a desire to finish his treatment and seemed open to the idea of taking medication to help manage his symptoms. Mental health history The patient has a history of mental health issues, including stress and negative thoughts. He has previously been in a program for treatment but left due to feeling overwhelmed. He expressed regret over leaving the program and has sought a new treatment program. Social history The patient mentioned staying with his grandmother, which he found stressful. He also mentioned a previous stay at [facility] and a plan to go to [facility] [place]. He did not mention any exercise, alcohol or tobacco consumption, diet, or work situation. Per his 01/11/2024 [facility] inpatient psychiatric discharge summary: Discharge Diagnosis (1) Cannabis abuse: Status: Acute (2) Methamphetamine use disorder, severe : Status: Acute (3) Unspecified psychosis: Status: Acute Reason for Visit Reason for Visit: anxiety, depression Brief History: History of Present Illness Vishal Mckinley is a 23 year old male who presented to the emergency department with complaints of having increased depression and anxiety. The patient was admitted voluntarily for further evaluation and treatment to the neuropsychiatric unit. The patient had previously been hospitalized multiple times on the neuropsychiatric unit most recently in June 2023. The patient had reported that he has been planning on going to [place] [id number] to learn more about God. The patient reports that he has been bothered most recently by a person that he describes having been on his mind for several years and states that he plans on harming this person if he does not get help by going to [facility]. The patient had reported that this person was like a friend on his shoulder but stated that he did not trust this person. The patient was a poor historian and reported that he was getting agitated . He had reported that he was not taking any medications. Patient had refused any urine drug screens at this time. Previous records had shown evidence of the patient having an extended history of stimulant abuse beginning as early as his teenage years with previous medications including zyprexa and Celexa having been prescribed in his last hospitalization. He reports that he currently lives in [place]. D/C Summary from [facility] on 07/03/23 Reason for Visit anxiety Brief History: History of Present Illness Vishal Mckinley is a 22 year old male who presented to the emergency department with the following report: Chief Complaint: Anxiety Stated Complaint: anxiety Time Seen by Provider: 06/30/23 20:02 History of Present Illness: 22-year-old male with a histor y of mood disorder and drug abuse presents emergency room with for complaint of anxiety and depression for the pas t few days. Patient denies any suicidal homicidal ideation. No hallucination. Patient reviews that he last used meth amphetamine few days ago. Denies any shortness of breath, chest pain, fever or chills. Associated symptoms: Deny chills, fever(s) or headache(s). He was admitted to the neuropsychiatric unit for definitive treatment of those issues. He presents today reporting that he does not remember this commercial insurance underwriter from previous hospitalizations. He reports that he had been doing well overall and had about a year of sobriety. He reports that there was some acquaintances/friends that he recently was interacting with that got him off track and he does report that he relapsed and that has caused significant difficulties. He denies being on any medication and reports that in general th ings are okay. We reviewed his 2020 short stay summary as he was struggling with withdrawal and not the best historian. He endorsed that it was an accurate depiction of his general history. He reports however that recently he has been staying sober by working and staying really busy and not hanging around people from the past. He is not really clear what the trigger was that got him off his positive run. But he said that things had really gotten bad which led to him coming to the hospital. He reports that it was methamphetamine again. He endorsed wanting to work with the treatment team to get connected with sober living treatment. He was somewhat unsure whether he wanted inpatient or outpatient but endorsed knowing he needs to get back on a recovery process. We agree we will work with him over the weekend and see how he is doing at the beginning of the week. An excerpt of his 2020 [facility] inpatient short stay summary is included below for context. Per his 01/19/2021 [facility] inpatient short stay summary: History of Present Illness Vishal Mckinley is a 20 year old male who presented to the emergency department with the following report: Chief Complaint: Overdose Stated Complaint: Overdose/SI Time Seen by Provider: 01/18/21 19:27 History of Present Illness: HPI Narrative: 20-year-old male presents after an overdose. I took a bunch of fentanyl, and an 8 ball of meth, and almost an 8 ball of cocaine, and 3 green Xanax, and I swallowed all of it . When asked why he says I let my depression get to me. My sister and her boyfriend were fighting all day about drugs. He is a bit of a poor historian. He does have a history of psychiatric problems. He states that he came here for help, because his heart was racing and hurting. 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 He is admitted to the neuropsychiatric unit for definitive treatment of those issues. Vishal is known to this commercial insurance underwriter with his last inpatient stay ending on 08/18/2020. He has struggled with addiction especially methamphetamine for some time and has been resistant at times and ambivalent at others to treatment especially aggressive inpatient treatment. He presents today on a voluntary commitment reporting a desire to get into treatment and that he had reached out to a facility and was interested in the possibility of inpatient at that facility. He reports that he has had some clean time since he last saw this commercial insurance underwriter however he reports that he has relapsed and he is really struggling again. He was noted to have some tweaking behaviors and reports that his main goal of coming to the inpatient facility here was to avoid continued use and get himself together so he can get to the rehab. We discussed the possibility of him staying in getting more stable but he endorses that he has been taking his medication and doing fine and that he really wants to just get to active treatment. We discussed that he is a voluntary patient and that we would contact the facility and make sure that in fact he does have this circumstance set up however we also agreed that the only way we would feel comfortable with the process was if we deliver him directly from our facility to the rehab which he understood and agreed to proceed as is documented in this note. He denies any substantive changes since he was seen last in excess of his last evaluation is included below for context. He was clear and his desired outcome but was not very interested in answering a lot of questions and even discussed AMA discharge because he reports he gets by to drive home therefore he did not help. Per his 08/13/2020 [facility] inpatient psychiatric valuation: History of Present Illness Vishal Mckinley is a 19 year old male admitted to the psychiatric unit on a 96- hour involuntary commitment after stating staff that he was considering ending his own life. HPI Narrative: 19-year-old male states he has been having suicidal thoughts today with a plan to kill himself by overdosing. Patient is voluntarily wanting to get help. He states that he has been using drugs lately and used IV methamphetamine today. He denies any worsening or improving factors. Denies previous suicide attempts. On interview today, he states I just told him that because I knew I had to say that to get in here. Patient states he was under a lot of stress and did not know where to go. He was only discharged from this unit 7 days ago. Since then he has been sleeping in a bed at his cousin's apartment. He has been using a methamphetamine on a regular but not daily basis. He literally has nothing else to do. He has been trying to get into a rehabilitation program. He feels that a rehabilitation program will solve many of his psychosocial issues. He believes that if he completes a rehabilitation program, he will either be allowed to return to his mother's home or he will be able to go live with an uncle and get a job with him. Otherwise he has a really no plan of how to manage his life. He engages in no enjoyable activities. He feels hopeless. He feels worthless. He is tearful and sad on a daily basis except when he uses drugs. He says that he tried to commit suicide once by fentanyl overdose but has not tried since then. However he sometimes thinks about suicide. He has no intent or plan at this time. He denies the presence of auditory or visual hallucinations. There is no indication of manic symptoms or history. It is unclear to what degree his substance use may be amplifying his depressive symptoms. They gave me some kind of medication for depression here but it did not help so I stopped taking it. He cannot name or recall the name of the medication. His complete psychiatric history will not be reviewed here given that this is his fifth admission in 6 months, fourth admission in 9 weeks and second admission in 8 days. His history has been thoroughly reviewed and I refer you to those documents. It is unclear that he has ever had a significant trial of medication for depression. There is no record of him participating in outpatient treatment following discharge. He claims to have achieved a GED but given his a level of problem solving skills exhibited during this interview, it should not be assumed that that claim is accurate. There have been multiple recommendations for him to go to rehabilitation programs and he is in generally cooperative with the assessment/plan: This is a 20-year-old white male known to this commercial insurance underwriter through multiple past encounters who presents to the neuropsychiatric unit with active use and addiction specifically with methamphetamine but with a rehab bed identified on a voluntary commitment with desire for assistance to get to that rehab bed. 1. Continue current medication. 2. Continue every 15 minute checks for safety. 3. Encourage individual, group and marissa eu therapies. 4. Encourage sober living treatment aft er discharge at the highest level of care to which he is willing to commit. 5. Patient would benefit from care in [facility] neuropsychiatric unit but ultimately the goal would be to get him to an inpatient bed which is available right now. He voluntary patient was arranged this inpatient bed and so we will support his decision. Hospital Course Hospital Course He acclimated to the individual, group and milieu therapies provided. He presented having relapsed and wanting to get restarted on his medication and wanting to restart his medications. We began Zyprexa 5 mg, Seroquel 100 mg and trazodone as well. He worked with the social work team for appropriate discharge appointments and endorsed a plan to follow-up with [facility] as well as his outpatient care and take his medications to ensure his success in sobriety. He had modest improvement during the stay and he was able to contract for safety outside the hospital prior to discharge. During the hospitalization, patient had routine laboratory studies which were within normal limits except for few o utliers. Additionally there was a general medical evaluation which was also within normal limits and revealed no new acute processes. Discharge Summary: At the time of discharge, he denied psychosis or lethality. Mood and anxiety were well managed. Patient endorsed a plan to avoid all drugs of abuse and follow-up with the aftercare recommendations of the treatment team. Patient was evaluated and deemed to be absent credible lethality, and had achieved significant benefit from an inpatient hospitalization, so was discharged Involuntary Hold Information 96 Hour Hold: 96 Hour Involuntary Admission: No Mental Status Exam MSE Comments: This is a well-nourished well-developed white adolescent male in hospital scrubs with adequate grooming and improving eye contact who appeared less guarded. No abnormal movements except for mild psychomotor agitation. He was mostly cooperative with exam in mild distress. Speech was slightly increased in rate and normal volume. Mood was described as anxious and overwhelmed. Affect was irritable and mood congruent. Thought process was linear . Thought content: He endorsed occasional aggressive thoughts/homicidal ideation towards people that annoy him but denied suicidal ideation, there were no delusions reported or noted, he denied any auditory or visual hallucinations. Attention and concentration were intact and memory was somewhat reliable, but none were formally tested. He is alert and oriented x3. Insight was impaired and judgment is poor and impulse control is impaired. Discharge Data Studies Completed and Pending: Laboratory Results WBC 5.60 10^3/uL (3.2 9-11.43) 03/06/24 10:16 RBC 5.12 10^6/uL (3.8 5-5.65) 03/06/24 10:16 Hgb 15.40 g/dL (11.27 -16.99) 03/06/24 10:16 Hct 46.5 % (37-53) 03/06/24 10:16 MCV 90.8 fl (82-101) 03/06/24 10:16 MCH 30.1 pg (27-33) 03/06/24 10:16 MCHC 33.1 g/dL (30-55) 03/06/24 10:16 RDW 11.9 % (12.1-15.1 ) L 03/06/24 10:16 Plt Count 315 10^3/cmm (157 -399) 03/06/24 10:16 MPV 10.0 fL (7.4-10.4 ) 03/06/24 10:16 Neut % (Auto) 59.1 % 03/06/24 10:16 Lymph % (Auto) 27.5 % 03/06/24 10:16 Benson % (Auto) 9.8 % 03/06/24 10:16 Eos % (Auto) 2.7 % 03/06/24 10:16 Baso % (Auto) 0.7 % 03/06/24 10:16 Neut # (Auto) 3.31 10^3/uL (1.8 -7.7) 03/06/24 10:16 Lymph # (Auto) 1.5 10^3/uL (0.8- 4.8) 03/06/24 10:16 Benson # (Auto) 0.6 10^3/uL (0.2- 0.9) 03/06/24 10:16 Eos # (Auto) 0.2 10^3/uL (0.0- 0.8) 03/06/24 10:16 Baso # (Auto) 0.0 10^3/uL (0.0- 0.1) 03/06/24 10:16 Nucleated RBC % (a uto) 0 % 03/06/24 10:16 Nucleated RBCs # 0.0 /100WBC 03/06/24 10:16 Sodium 136 mmol/L (136-1 45) 03/06/24 10:16 Potassium 4.0 mmol/L (3.5-5 .1) 03/06/24 10:16 Chloride 101 mmol/L (98-10 7) 03/06/24 10:16 Carbon Dioxide 24 mmol/L (22-29) 03/06/24 10:16 Anion Gap 15.0 (5-19) 03/06/24 10:16 BUN 12 mg/dL (6-20) 03/06/24 10:16 Creatinine 0.8 mg/dL (0.7-1. 2) 03/06/24 10:16 GFR Calculation 120.9 mL/min (90- 130) 03/06/24 10:16 Glucose 113 mg/dL (65-115 ) 03/06/24 10:16 Calculated Osmolal ity 283 mOsm/kg (285- 295) L 03/06/24 10:16 Calcium 9.0 mg/dL (8.5-10 .5) 03/06/24 10:16 Total Bilirubin 0.3 mg/dL (0.15-1 .2) 03/06/24 10:16 AST 21 U/L (0-40) 03/06/24 10:16 ALT 39 U/L (0-41) 03/06/24 10:16 Alkaline Phosphata se 55 U/L (40-130) 03/06/24 10:16 Total Protein 7.6 g/dL (6.6-8.7 ) 03/06/24 10:16 Albumin 4.6 g/dL (3.5-5.2 ) 03/06/24 10:16 Globulin 3.0 g/dL (1.3-4.6 ) 03/06/24 10:16 Salicylates < 0.3 mg/dL (3-10 ) L 03/06/24 10:16 Urine Opiates Scre en Negative ng/mL (N egative) 03/06/24 11:48 Acetaminophen < 5.0 ug/mL (10-3 0) L 03/06/24 10:16 Ur Barbiturates Sc reen Negative ng/mL (N egative) 03/06/24 11:48 Ur Phencyclidine S crn Negative ng/mL (N egative) 03/06/24 11:48 Ur Amphetamines Sc reen Negative ng/mL (N egative) 03/06/24 11:48 U Benzodiazepines Scrn Negative ng/mL (N egative) 03/06/24 11:48 Urine Cocaine Scre en Negative ng/mL (N egative) 03/06/24 11:48 U Marijuana (THC) Screen Positive ng/mL (N egative) H 03/06/24 11:48 Ethyl Alcohol < 10 mg/dL (0-10) 03/06/24 10:16 Vitals: Last Vital Signs Temp 98.2 F 03/13/24 15:09 Pulse 93 06/25/24 15:09 Resp 20 H 03/13/24 15:09 BP 117/55 03/13/24 15:09 Pulse Ox 97 03/13/24 15:09 O2 Del Method Room Air 03/13/24 13:39 Discharge Plan Discharge Patient Disposition: Home Condition: Stable Prescriptions: Discontinued trazodone 50 mg Tablet 50 mg PO BEDTIME PRN (Reason: Sleep) 30 Days Qty: 30 1RF quetiapine 100 mg Tablet 100 mg PO BEDTIME PRN (Reason: Sleep) 30 Days Qty: 30 1RF olanzapine 5 mg Tablet,Disintegrating 5 mg PO DAILY PRN (Reason: Agitation/Psychosis) 30 Days Qty: 30 1RF Discharge Orders: Discharge Order (Routine); Ordered 03/13/24 Ordered By: Robert Geiger Referrals: [facility] [Other] - 03/29/24 12:00 pm (Inpatient) [facility] [Outside] Romulo Main MD [Primary Care Provider] - Discharge Diet: Regular Discharge Activity: Resume usual activity Patient Instructions: Suicide Prevention (DC), Opioid Safety Discharge Attestations [facility] Time Spent in Discharge Care*: less than 30 min Specific Discharge Activities: Specific discharge activities: educating patient, discussing with case manager/social workers/dc planners, documenting/other paperwork and evaluating patient/reviewing data Coding Level of Care Code Acute Code for Chg Fwd Diagnoses Cannabis abuse F12.10 Methamphetamine use disorder, severe F15.20 Unspecified psychosis F29
== END 2024-03-13 16:09 | DRG 885 ==
LOC: ER 11:10 → NP 11:38
PROVIDERS: Admitting Provider Psychiatry & Neurology Psychiatry; Emergency Provider Physician Assistant; PCP Family Medicine; Visit Provider Psychiatry & Neurology Psychiatry
DX: F29 Unspecified psychosis not due to a substance or known physiological condition (principal); F15.90 Other stimulant use, unspecified, uncomplicated; F12.10 Cannabis abuse, uncomplicated
CPT/HCPCS: 80053; 80306; 80307; 85025; 97150; 97165; 99285